=== PATIENT | male | born 1965 | race Caucasian/White ===

== ENCOUNTER 2017-08-25 12:17 | Emergency (ER) | payer MEDICAID ==
[2017-08-25] MEDS ORDERED: cefTRIAXone 2 GM in Sodium Chloride 0.9% 100 ML IV ONE (12:37)
[2017-08-25] MEDS ORDERED: Clindamycin Phosphate 900 MG in Sodium Chloride 0.9% 100 ML IV ONE (12:37)
[2017-08-25] MEDS ORDERED: Linezolid 600 MG in Premix Bag 1 BAG IV ONE (12:38)
[2017-08-25] MEDS ORDERED: Piperacillin/Tazobactam 4.5 GM in Sodium Chloride 0.9% 100 ML IV ONE (12:38)
--- NOTE | 2017-08-25 12:39 | EDM.PDOC ---
ED HPI GENERAL MEDICAL PROBLEM - General Chief Complaint: Genitourinary Problem Stated Complaint: SCROTAL WALL ABCESS/SENT FROM CLINIC Time Seen by Provider: 08/25/17 12:34 Source of Information: Reports: Patient History Limitations: Reports: No Limitations - History of Present Illness INITIAL COMMENTS - FREE TEXT/NARRATIVE: 51-year-old male presents the ED at the request of his primary care physician Dr. Toledo. Patient presents with a left scrotal inflammation posterior lateral aspect since Wednesday, August 21. He was seen in the clinic and was felt to have a cellulitis developing left lateral scrotum and was placed on cephalexin 500 mg 3 times a day. An ultrasound was also performed which did not show an abscess at this time showed only soft tissue swelling of the scrotum itself. Subsequently the wound opened and started to drain and was seen through the clinic yesterday. Decision made to have a CT scan performed which was done this morning. This revealed an abscess has now formed in the left lateral scrotal sac that is extending up into the left inguinal canal. The patient is a type I diabetic that is extremely poorly controlled. Again due to noncompliance. He takes 30-40 units of Novolog insulin with each meal 80 units of Lantus or Levemir aqnd Victoza 1.8 mg once daily and metformin 1 gm twice daily. He was thus sent to the ED for further evaluation and surgical consultation. It is likely due to his poor diabetic state that his stay in hospital could be longer than 96 hours and he may need to be transferred to [place] for care. Patient walks bent over due to severe scoliosis of his thoracic spine. States he is walking slower because of the pain in the left lateral scrotum. He doesn't feel systemically ill with fever and nausea but he states he gets the chills once in a while. When asked what his blood sugars were he states was 384 today. He rarely gets a reading below 200. Onset: Gradual Onset Date: 08/21/17 Duration: Day(s): Location: Reports: Other (Left lateral scalp posterior scrotum.) Quality: Reports: Ache, Burning Severity: Moderate Improves with: Reports: None Worsens with: Reports: None Context: Denies: Activity, Exercise, Lifting, Sick Contact, Trauma, Other Associated Symptoms: Reports: No Other Symptoms Treatments [employer]: Reports: Acetaminophen, Other (see below) (Ward lacks 500 mg 3 times a day.) Left Groin Pain Score (Numeric/FACES): 8 - Related Data Allergies Allergy/AdvReac Type Severity Reaction Status Date / Time aspirin Allergy Other Verified 08/25/17 12:31 Egg Derived Allergy Hives Verified 08/25/17 12:31 gemfibrozil Allergy Cannot Verified 08/25/17 12:31 Remember Home Meds: Home Meds Insulin Aspart [NovoLOG] 1 dose SQ ASDIRECTED PRN 05/20/14 [History] Insulin Glarg,Human.Rec.Analog [Lantus] 80 unit SQ BEDTIME 05/20/14 [History] Metoprolol Succinate [Toprol XL 50mg] 50 mg PO BID 05/20/14 [History] metFORMIN [Glucophage] 1,000 mg PO BIDM 05/20/14 [History] Lisinopril 10 mg PO DAILY 04/25/15 [History] Omeprazole 20 mg PO DAILY 04/25/15 [History] Pravastatin [Pravachol] 40 mg PO DAILY 04/25/15 [History] Cephalexin 500 mg PO TID 08/25/17 [History] Liraglutide [Victoza] 1.8 mg SUBCUT DAILY 08/25/17 [History] Past Medical History Other HEENT History: GLASSES Cardiovascular History: Reports: High Cholesterol, Hypertension Other Respiratory History: Positive sleep study 15 yrs. ago - stopped CPAP 5 yrs. ago Other Musculoskeletal History: HX OF SCOLIOSIS Endocrine/Metabolic History: Reports: Diabetes, Type I Other Endocrine/Metabolic History: uncontrolled DM II BS = 268 states his monitor frequently can not read high sugar Social & Family History - Tobacco Use Smoking Status *Q: Former Smoker Month Tobacco Last Used: 1988 Second Hand Smoke Exposure: Yes - Recreational Drug Use Recreational Drug Use: No Drug Use in Last 12 Months: No - Living Situation & Occupation Living situation: Reports: Single Occupation: Employed ED ROS GENERAL - Review of Systems Review Of Systems: See Below Constitutional: Reports: Chills, Malaise, Fatigue. Denies: Weight Loss HEENT: Reports: No Symptoms Respiratory: Reports: No Symptoms Cardiovascular: Reports: No Symptoms Endocrine: Reports: Fatigue, High Glucose GI/Abdominal: Reports: Other (Mild pain in the left inguinal area and lower abdomen.) : Reports: Other (Left scrotal erythema and pain with purulent drainage from the left lateral scrotum.) Musculoskeletal: Reports: Other (Has severe scoliosis of his thoracic spine) Skin: Reports: Wound (Left lateral scrotum which is oozing purulent material.) Neurological: Reports: No Symptoms Psychiatric: Reports: No Symptoms Hematologic/Lymphatic: Reports: No Symptoms Immunologic: Reports: No Symptoms ED EXAM, RENAL/ - Physical Exam Exam: See Below Exam Limited By: No Limitations General Appearance: Alert, WD/WN, No Apparent Distress (Afebrile) Eye Exam: Bilateral Eye: Normal Inspection Nose: Normal Inspection, Normal Mucosa Throat/Mouth: Normal Inspection, Other (I can smell ketones on his breath.) Head: Atraumatic, Normocephalic Neck: Normal Inspection, Supple, Non-Tender, Full Range of Motion. No: Lymphadenopathy (L), Lymphadenopathy (R) Respiratory/Chest: No Respiratory Distress, Lungs Clear, Normal Breath Sounds, No Accessory Muscle Use, Chest Non-Tender Cardiovascular: Normal Peripheral Pulses, Regular Rate, Rhythm, No Edema, No Gallop, No Murmur, No Rub GI/Abdominal: Normal Bowel Sounds, Soft, Non-Tender, No Organomegaly, No Distention, No Abnormal Bruit, No Mass, Pelvis Stable, Other (Reports previous surgery in his abdomen that the ileo-cecal valve but I'm do not understand exactly what was done. He doesn't think his appendix was removed.) (Male) Exam: Scrotum Tenderness (L), Other (Entire scrotum is erythematous. He has an abscess formation in the left lateral scrotum with 3 areas of purulent pointing evident. One is open and draining and cultures were obtained. Mass extends partially 6 cm laterally towards the inguinal canal in its approximate 1.8 cm in width. It is firm and indurated and in the scrotal wall.) Back Exam: Other (Severe scoliosis thoracic spine.) Extremities: Normal Inspection, Normal Range of Motion, Non-Tender, No Pedal Edema Neurological: Alert, Oriented, CN II-XII Intact, Normal Cognition. No: Normal Gait Psychiatric: Normal Affect, Normal Mood Skin Exam: Warm, Dry, Intact, Normal Color, Other (Draining abscess left lateral scrotal wall with purulent material up against the left medial thigh.) Course - Vital Signs Last Recorded V/S: Last Vital Signs Temp 37.1 C 08/25/17 12:26 Pulse 62 08/25/17 14:22 Resp 16 08/25/17 12:26 BP 129/98 H 08/25/17 14:22 Pulse Ox 95 08/25/17 14:22 - Orders/Labs/Meds Orders: Active Orders 24 hr Category Date Time Status Blood Glucose Check, Bedside [RC] ONETIME Care 08/25/17 12:36 Active EKG Documentation Completion [RC] STAT Care 08/25/17 14:59 Active CULTURE ANAEROBIC + SMEAR [RM] Stat Lab 08/25/17 12:30 Received CULTURE BLOOD [BC] Stat Lab 08/25/17 12:55 Received CULTURE BLOOD [BC] Stat Lab 08/25/17 13:00 Received Insulin Regular, Human [HumuLIN R] 100 unit Med 08/25/17 15:33 Active Sodium Chloride 0.9% [Normal Saline] 99 ml IV ASDIRECTED Potassium Chloride [KCl 10 MEQ in Water 100 ML] 10 meq Med 08/25/17 15:08 Active Premix Bag 1 bag IV ONETIME Sodium Chloride 0.9% [Normal Saline] 1,000 ml Med 08/25/17 12:45 Active IV ASDIRECTED Blood Culture x2 Reflex Set [OM.PC] Stat Oth 08/25/17 12:36 Ordered Medication Orders Sodium Chloride (Normal Saline) 1,000 mls @ 999 mls/hr IV ASDIRECTED [facility] Last Admin: 08/25/17 13:06 Dose: 500 mls/hr Potassium Chloride 10 meq/ (Premix) 100 mls @ 100 mls/hr IV ONETIME ONE Stop: 08/25/17 16:07 Last Admin: 08/25/17 15:24 Dose: 100 mls/hr Insulin Human Regular 100 unit (/ Sodium Chloride) 100 mls @ 5 mls/hr IV ASDIRECTED [facility] PRN Reason: Protocol Last Admin: 08/25/17 15:34 Dose: 5 mls/hr Labs: Laboratory Tests 08/25/17 08/25/17 08/25/17 Range/Units 12:55 12:55 12:55 WBC 7.26 (4.23-9.07) K/mm3 RBC 4.67 (4.63-6.08) M/mm3 Hgb 13.5 L (13.7-17.5) gm/L Hct 38.7 L (40.1-51.0) % MCV 82.9 (79.0-92.2) fl MCH 28.9 (25.7-32.2) pg MCHC 34.9 (32.2-35.5) g/dl RDW Std Deviation 37.4 (35.1-43.9) fL Plt Count 245 (163-337) K/mm3 MPV 11.2 (9.4-12.3) fl Neutrophils % (Manual) 61 H (40-60) % Band Neutrophils % 1 (0-10) % Lymphocytes % (Manual) 27 (20-40) % Atypical Lymphs % 0 % Monocytes % (Manual) 8 (2-10) % Eosinophils % (Manual) 3 (0.8-7.0) % Basophils % (Manual) 0 L (0.2-1.2) Platelet Estimate Adequate Plt Morphology Comment Normal RBC Morph Comment Normal Sodium 135 L (136-145) mEq/L Potassium 3.6 (3.5-5.1) mEq/L Chloride 95 L (98-107) mEq/L Carbon Dioxide 24 (21-32) mEq/L Anion Gap 19.6 H (5-15) BUN 13 (7-18) mg/dL Creatinine 1.1 (0.7-1.3) mg/dL Est Cr Clr Drug Dosing 83.67 mL/min Estimated GFR (MDRD) > 60 (>60) mL/min BUN/Creatinine Ratio 11.8 L (14-18) Glucose 496 H (74-106) mg/dL POC Glucose (70-105) mg/dL Serum Osmolality 307 H (280-300) mosm/kg Lactic Acid 1.4 (0.4-2.0) mmol/L Calcium 9.6 (8.5-10.1) mg/dL Magnesium 1.6 L (1.8-2.4) mg/dl Total Bilirubin 0.5 (0.2-1.0) mg/dL AST 14 L (15-37) U/L ALT 20 (16-63) U/L Alkaline Phosphatase 100 (46-116) U/L C-Reactive Protein 3.6 H* (<1.0) mg/dL Total Protein 7.4 (6.4-8.2) g/dl Albumin 3.6 (3.4-5.0) g/dl Globulin 3.8 gm/dL Albumin/Globulin Ratio 1.0 (1-2) Urine Color (Yellow) Urine Appearance (Clear) Urine pH (5.0-8.0) Ur Specific Panacea (1.005-1.030) Urine Protein (Negative) Urine Glucose (UA) (Negative) Urine Ketones (Negative) Urine Occult Blood (Negative) Urine Nitrite (Negative) Urine Bilirubin (Negative) Urine Urobilinogen (0.2-1.0) Ur Leukocyte Esterase (Negative) Urine RBC (0-5) /hpf Urine WBC (0-5) /hpf Ur Epithelial Cells (0-5) /hpf Urine Bacteria (FEW) /hpf Urine Mucus (FEW) /hpf Ketones (0.0-0.3) mM 08/25/17 08/25/17 08/25/17 Range/Units 12:55 13:32 14:00 WBC (4.23-9.07) K/mm3 RBC (4.63-6.08) M/mm3 Hgb (13.7-17.5) gm/L Hct (40.1-51.0) % MCV (79.0-92.2) fl MCH (25.7-32.2) pg MCHC (32.2-35.5) g/dl RDW Std Deviation (35.1-43.9) fL Plt Count (163-337) K/mm3 MPV (9.4-12.3) fl Neutrophils % (Manual) (40-60) % Band Neutrophils % (0-10) % Lymphocytes % (Manual) (20-40) % Atypical Lymphs % % Monocytes % (Manual) (2-10) % Eosinophils % (Manual) (0.8-7.0) % Basophils % (Manual) (0.2-1.2) Platelet Estimate Plt Morphology Comment RBC Morph Comment Sodium (136-145) mEq/L Potassium (3.5-5.1) mEq/L Chloride (98-107) mEq/L Carbon Dioxide (21-32) mEq/L Anion Gap (5-15) BUN (7-18) mg/dL Creatinine (0.7-1.3) mg/dL Est Cr Clr Drug Dosing mL/min Estimated GFR (MDRD) (>60) mL/min BUN/Creatinine Ratio (14-18) Glucose (74-106) mg/dL POC Glucose 383 H (70-105) mg/dL Serum Osmolality (280-300) mosm/kg Lactic Acid (0.4-2.0) mmol/L Calcium (8.5-10.1) mg/dL Magnesium (1.8-2.4) mg/dl Total Bilirubin (0.2-1.0) mg/dL AST (15-37) U/L ALT (16-63) U/L Alkaline Phosphatase (46-116) U/L C-Reactive Protein (<1.0) mg/dL Total Protein (6.4-8.2) g/dl Albumin (3.4-5.0) g/dl Globulin gm/dL Albumin/Globulin Ratio (1-2) Urine Color Light yellow (Yellow) Urine Appearance Clear (Clear) Urine pH 6.0 (5.0-8.0) Ur Specific Panacea 1.015 (1.005-1.030) Urine Protein Negative (Negative) Urine Glucose (UA) 2+ H (Negative) Urine Ketones 2+ H (Negative) Urine Occult Blood Negative (Negative) Urine Nitrite Negative (Negative) Urine Bilirubin Negative (Negative) Urine Urobilinogen 0.2 (0.2-1.0) Ur Leukocyte Esterase Negative (Negative) Urine RBC Not seen (0-5) /hpf Urine WBC 0-5 (0-5) /hpf Ur Epithelial Cells Not seen (0-5) /hpf Urine Bacteria Rare (FEW) /hpf Urine Mucus Few (FEW) /hpf Ketones 2.7 (0.0-0.3) mM Meds: Medications Generic Name Dose Route Start Last Admin Trade Name Freq PRN Reason Stop Dose Admin Sodium Chloride 1,000 mls @ 999 mls/hr 08/25/17 12:45 08/25/17 13:06 Normal Saline IV 500 mls/hr ASDIRECTED JANET Administration Potassium Chloride 10 meq/ 100 mls @ 100 mls/hr 08/25/17 15:08 08/25/17 15:24 Premix IV 08/25/17 16:07 100 mls/hr ONETIME ONE Administration Insulin Human Regular 100 unit 100 mls @ 5 mls/hr 08/25/17 15:33 08/25/17 15: 34 / Sodium Chloride IV 5 mls/hr ASDIRECTED JANET Administration Protocol Discontinued Medications Generic Name Dose Route Start Last Admin Trade Name Freq PRN Reason Stop Dose Admin Ceftriaxone Sodium 2 gm/ 100 mls @ 200 mls/hr 08/25/17 12:37 08/25/17 13:07 Sodium Chloride IV 08/25/17 13:06 200 mls/hr ONETIME ONE Administration Clindamycin Phosphate 900 mg/ 106 mls @ 100 mls/hr 08/25/17 12:37 08/25/17 13 :40 Sodium Chloride IV 08/25/17 13:40 100 mls/hr ONETIME ONE Administration Linezolid 600 mg/ Premix 300 mls @ 300 mls/hr 08/25/17 12:38 IV 08/25/17 13:37 ONETIME ONE Piperacillin Sod/Tazobactam 100 mls @ 200 mls/hr 08/25/17 12:38 08/25/17 13: 44 Sod 4.5 gm/ Sodium Chloride IV 08/25/17 13:07 Not Given ONETIME ONE Insulin Human Regular 100 unit 100 mls @ 437.5 mls/hr 08/25/17 14:45 / Sodium Chloride IV ASDIRECTED JANET Protocol 5 UNITS/KG/HR Potassium Chloride Confirm 08/25/17 15:14 08/25/17 15:37 Kcl 10 Meq In Water 100 Ml Administered 08/25/17 15:15 Not Given Dose 100 mls @ as directed .ROUTE .STK-MED ONE Insulin Human Regular 10 unit 08/25/17 13:38 08/25/17 13:59 Humulin R IVPUSH 08/25/17 13:39 10 units ONETIME ONE Administration Protocol - Radiology Interpretation Free Text/Narrative:: 51-year-old male presents to the ED at the request of his primary care physician . He sat in infective process left lateral scrotal wall since last August 21. Scrotal ultrasound done on Wednesday it's suggested that the infection was localized to the scrotal wall and he was placed on cephalexin 500 mg 3 times a day. The wound start opening and draining yesterday evening and therefore CT scan was done today which shows an abscess has now formed in the left scrotal wall and it is draining purulent material up against his left medial thigh. The abscess apparently extends up to the left inguinal canal on CT according to Dr. charlton. The patient himself is not showing signs of systemic illness although he complains intermittently of some chills. He is afebrile on examination. There is no evidence of erythema of the abdominal wall but he does have erythema both sides of his scrotum and active draining area on the left lateral posterior scrotal wall with 3 areas of purulent pointing. The problem is that he is a very poorly controlled diabetic. Probably mainly due to noncompliance. He rarely gets his sugar below 200. Today sugar was penetrating foreign I can smell ketones on his breath. He therefore will require hospitalization with open drainage of the abscess before he develops next arising fasciitis or David's gangrene. Will start him on Rocephin 2 g IV and Zyvox 600 mg IV and then this will be followed by clindamycin 900 mg IV. I will discuss this case with local surgeon but I suspect he will be in hospital longer than 96 hours which showed lids are stay in the [facility] hospital. We will likely therefore didn't require transferred to [facility] for definitive surgical management and care which may be prolonged. Blood cultures 2 were obtained. We did obtain cultures from the wound is then not been done previous. - Re-Assessments/Exams Free Text/Narrative Re-Assessment/Exam: 08/25/17 13:40 bedside blood sugar reported to be 383. Will give Humalog insulin by R insulin 10 units IV bolus. 08/25/17 15:00 Labs are back. White count was 7.26 with 61% neutrophils and 1% bands reported. Hemoglobin is 13.5 with hematocrit of 38.7. Sodium was 135 potassium 3.6 chloride 95 bicarbonate 24. And a gap is elevated at 19.6. B1 is 13 creatinine is 1.1. EGFR remains greater than 60.. Glucose is 496 in the lab. Osmolality 307. Lactic acid 1.4. Calcium 9.6 magnesium slightly low at 1.6. Total bilirubin 0.5 AST is 14 and she is 20 alkaline phosphatase stays 100. C- reactive protein is 3.6. Urinalysis is essentially normal without any signs of infection. Plan insulin infusion at 5 units an hour.. I will therefore hang 10 mEq of potassium to run in over one half hour. He will be on an insulin drip at 5 units an hour. He is clindamycin is due to run in [employer] and he has 2 IVs running. Plan will be to give him normal saline at open. 08/25/17 15:20: Spoke with urologist at [facility] and he has advised transfer to his facility. Dr. Evans --hospitalist has accepted care. Patient will therefore be transferred to that hospital per ground ambulance. 2 major problems one is uncontrolled diabetes with mild diabetic ketoacidosis. Second is developing scrotal abscess that is extending up towards the left inguinal canal by CT examination as reported to me from CT done through the [place] system this morning. Patient is not systemically ill at this point time from the infection. His diabetes is poorly controlled chronically. Departure - Departure Time of Disposition: 15:30 Disposition: DC/Tfer to Acute Hospital 02 Condition: Serious Clinical Impression: Scrotal wall abscess, Diabetic ketoacidosis Uncontrolled diabetes mellitus Qualifiers: Diabetes mellitus type: type 2 Diabetes mellitus complication status: with hyperglycemia Diabetes mellitus senior care insulin use: unspecified senior care insulin use status Qualified Code(s): E11.65 - Type 2 diabetes mellitus with hyperglycemia - Discharge Information Referrals: Eris Toledo MD [Primary Care Provider] - Forms: ED Department Discharge Additional Instructions: Patient be transferred to [place] for definitive surgical management by urology services of his left scrotal wall abscess which is extending up into the left inguinal canal on CT exam. Has uncontrolled type 2 diabetes controlled with insulin. He is showing some evidence of early diabetic ketoacidosis with a serum ketones of 2.5 and a and a gap of 19.5. He is therefore started on insulin drip at 5 units an hour. He is to be admitted by hospitalist service and urology services to consult. - My Orders Last 24 Hours: My Active Orders 08/25/17 12:30 CULTURE ANAEROBIC + SMEAR [RM] Stat 08/25/17 12:36 Blood Glucose Check, Bedside [RC] ONETIME Blood Culture x2 Reflex Set [OM.PC] Stat 08/25/17 12:45 Sodium Chloride 0.9% [Normal Saline] 1,000 ml IV ASDIRECTED 08/25/17 12:55 CULTURE BLOOD [BC] Stat 08/25/17 13:00 CULTURE BLOOD [BC] Stat 08/25/17 14:59 EKG Documentation Completion [RC] STAT 08/25/17 15:08 Potassium Chloride [KCl 10 MEQ in Water 100 ML] 10 meq Premix Bag 1 bag IV ONETIME 08/25/17 15:33 Insulin Regular, Human [HumuLIN R] 100 unit Sodium Chloride 0.9% [Normal Saline] 99 ml IV ASDIRECTED - Assessment/Plan Last 24 Hours: My Active Orders 08/25/17 12:30 CULTURE ANAEROBIC + SMEAR [RM] Stat 08/25/17 12:36 Blood Glucose Check, Bedside [RC] ONETIME Blood Culture x2 Reflex Set [OM.PC] Stat 08/25/17 12:45 Sodium Chloride 0.9% [Normal Saline] 1,000 ml IV ASDIRECTED 08/25/17 12:55 CULTURE BLOOD [BC] Stat 08/25/17 13:00 CULTURE BLOOD [BC] Stat 08/25/17 14:59 EKG Documentation Completion [RC] STAT 08/25/17 15:08 Potassium Chloride [KCl 10 MEQ in Water 100 ML] 10 meq Premix Bag 1 bag IV ONETIME 08/25/17 15:33 Insulin Regular, Human [HumuLIN R] 100 unit Sodium Chloride 0.9% [Normal Saline] 99 ml IV ASDIRECTED
[2017-08-25] MEDS ORDERED: Sodium Chloride 0.9% 1,000 ML IV SCH ×2 (12:45→15:10)
[2017-08-25] MEDS ORDERED: Insulin Regular, Human 100 Units/ML 3 ML Vial IVPUSH ONE (13:38)
[2017-08-25 14:23] VITALS: BP 129/98
[2017-08-25] MEDS ORDERED: Potassium Chloride 10 MEQ in Premix Bag 1 BAG IV ONE (15:08)
[2017-08-25] MEDS ORDERED: Potassium Chloride 100 ML ONE (15:14)
== END 2017-08-25 15:57 ==
LOC: JD.ED 12:17
DX: N49.2 Inflammatory disorders of scrotum (principal); E11.10 Type 2 diabetes mellitus with ketoacidosis without coma; I10 Essential (primary) hypertension; E78.00 Pure hypercholesterolemia, unspecified; Z87.891 Personal history of nicotine dependence; Z79.4 Long term (current) use of insulin; Z79.899 Other long term (current) drug therapy; Z88.6 Allergy status to analgesic agent; Z88.8 Allergy status to other drugs, medicaments and biological substances; Z91.012 Allergy to eggs
CPT/HCPCS: 36415; 80053; 81001; 82009; 82962; 83605; 83735; 83930; 85025; 86140; 87040; 87075; 87205; 93005; 96361; 96365; 96367; 96375; 99285; J0696; J1817; J2020; J3480; J7030; J7040; 87076; 87077; 87181; 87186

== ENCOUNTER 2019-12-27 23:08 | Emergency (ER) | payer MEDICAID, OTHER ==
--- NOTE | 2019-12-27 23:34 | EDM.PDOC ---
ED HPI GENERAL MEDICAL PROBLEM - General Chief Complaint: Respiratory Problem Stated Complaint: COUGH/CHEST PAIN Time Seen by Provider: 12/27/19 23:20 Source of Information: Reports: Patient History Limitations: Reports: No Limitations - History of Present Illness INITIAL COMMENTS - FREE TEXT/NARRATIVE: 54-year-old male presents to the ED due to severe paroxysmal cough and bringing up some sputum for the last 2 to 3 days. He states he is had a cough off and on for the last 2 months. Not sure about fever or chills. States he does have some mild generalized myalgia. Appetite remains good. She cannot sleep tonight because of severe paroxysmal cough. Still smokes cigarettes but quit many years ago. No history of asthma. Admits greenish in color without any hemoptysis. Of note the patient is a type II diabetic controlled with insulin and oral hypoglycemics Onset: Gradual Onset Date: 12/24/19 Duration: Day(s):, Getting Worse Location: Reports: Chest Quality: Reports: Ache (Of cough with pain upper anterior chest from coughing so much.) Severity: Moderate Improves with: Reports: None Worsens with: Reports: Other Context: Denies: Activity, Exercise, Lifting, Sick Contact, Trauma, Other Associated Symptoms: Reports: Chest Pain, Cough, cough w sputum, Malaise. Denies: No Other Symptoms, Confusion, Diaphoresis, Fever/Chills (Only with coughing), Headaches, Loss of Appetite, Nausea/Vomiting Treatments [employer]: Reports: Other (see below) (None.) Chest Pain Score (Numeric/FACES): 4 - Related Data Allergies Allergy/AdvReac Type Severity Reaction Status Date / Time aspirin Allergy Other Verified 12/27/19 23:18 Egg Derived Allergy Hives Verified 12/27/19 23:18 gemfibrozil Allergy Cannot Verified 12/27/19 23:18 Remember Home Meds: Home Meds Insulin Aspart [NovoLOG] 1 dose SQ ASDIRECTED PRN 05/20/14 [History] Insulin Glarg,Human.Rec.Analog [Lantus] 80 unit SQ BEDTIME 05/20/14 [History] Metoprolol Succinate [Toprol XL 50mg] 50 mg PO BID 05/20/14 [History] metFORMIN [Glucophage] 1,000 mg PO BIDM 05/20/14 [History] Lisinopril 10 mg PO DAILY 04/25/15 [History] Omeprazole 20 mg PO DAILY 04/25/15 [History] Rosuvastatin Calcium 40 mg PO DAILY 12/27/19 [History] Codeine/Promethazine [Phenergan with Codeine] 15 ml PO Q6H PRN #300 ml 12/28/19 [Rx] Doxycycline [Vibramycin] 100 mg PO BID #20 cap 12/28/19 [Rx] Past Medical History Other HEENT History: GLASSES Cardiovascular History: Reports: High Cholesterol, Hypertension Other Respiratory History: Positive sleep study 15 yrs. ago - stopped CPAP 5 yrs. ago Other Musculoskeletal History: HX OF SCOLIOSIS Endocrine/Metabolic History: Reports: Diabetes, Type I Other Endocrine/Metabolic History: uncontrolled DM II BS = 268 states his monitor frequently can not read high sugar - Infectious Disease History Infectious Disease History: Reports: Chicken Pox Social & Family History - Tobacco Use Smoking Status *Q: Unknown Ever Smoked - Caffeine Use Caffeine Use: Reports: Soda - Living Situation & Occupation Living situation: Reports: Single Occupation: Employed ED ROS GENERAL - Review of Systems Review Of Systems: See Below Constitutional: Reports: Malaise, Fatigue (Not sleeping). Denies: Fever, Chills HEENT: Reports: Glasses (Glasses for reading) Respiratory: Reports: Shortness of Breath, Cough, Sputum. Denies: Wheezing, Hemoptysis (Greenish-brown sputum) Cardiovascular: Reports: Chest Pain (Upper chest from coughing so much.), Blood Pressure Problem (Metoprolol), Dyspnea on Exertion. Denies: Claudication, Edema , Lightheadedness, Orthopnea Endocrine: Reports: No Symptoms (Times) GI/Abdominal: Reports: No Symptoms : Reports: Frequency Musculoskeletal: Reports: Neck Pain, Back Pain Skin: Reports: No Symptoms (Times) Neurological: Reports: No Symptoms Psychiatric: Reports: No Symptoms ED EXAM, GENERAL - Physical Exam Exam: See Below Exam Limited By: No Limitations General Appearance: Alert, WD/WN, Mild Distress, Other (He feels slightly warm to palpation but nurses recorded temperature is 36.0. Heart rate was 117 when he came in and is currently about the same. Appears to be sinus tachycardia on the monitor he was 127/91.) Eye Exam: Bilateral Eye: Normal Inspection (No scleral icterus or blepharal pallor.) Ears: Normal TMs Throat/Mouth: Normal Inspection, Normal Lips, Normal Oropharynx, Other ( Dentition in poor shape.) Head: Atraumatic, Normocephalic Neck: Normal Inspection, Supple, Non-Tender, Full Range of Motion. No: Carotid Bruit, Lymphadenopathy (L), Lymphadenopathy (R) Respiratory/Chest: No Respiratory Distress, Lungs Clear, Normal Breath Sounds, No Accessory Muscle Use Cardiovascular: No Edema, No Gallop ( I will get an ECG to confirm this), No JVD, No Murmur, No Rub, Tachycardia (Rate is 117 120/min and appears to be sinus tach on the monitor.). No: Normal Peripheral Pulses, Regular Rate, Rhythm Peripheral Pulses: 2+: Posterior Tibial (L), Posterior Tibial (R), Dorsalis Pedis (L), Dorsalis Pedis (R) GI/Abdominal: Normal Bowel Sounds, Soft, Non-Tender, No Organomegaly, No Abnormal Bruit, No Mass, Pelvis Stable, Other (K. Colin abdomen.) Back Exam: Normal Inspection, Full Range of Motion. No: CVA Tenderness (L), CVA Tenderness (R) Extremities: Normal Inspection, Normal Range of Motion, Non-Tender, No Pedal Edema Neurological: Alert, Oriented, CN II-XII Intact, Normal Cognition Psychiatric: Normal Affect, Normal Mood Skin Exam: Warm, Dry, Intact, Normal Color, No Rash EKG INTERPRETATION EKG Date: 12/27/19 Time: 23:49 Rhythm: Other Rate (Beats/Min): 112 Wirt: Normal P-Wave: Present (Inverted in V1 nonspecific finding) QRS: Other (Late R wave transition consider right ventricular hypertrophy/ septal hypertrophy pattern.) ST-T: Other (Nonspecific T wave flattening in lead I and lead III.) QT: Prolonged (Clarisse prolonged) EKG Interpretation Comments: Borderline ECG. No signs of ischemia Course - Vital Signs Last Recorded V/S: Last Vital Signs Temp 36.0 C L 12/27/19 23:15 Pulse 113 H 12/28/19 00:35 Resp 20 12/28/19 00:35 BP 125/80 12/28/19 00:35 Pulse Ox 94 L 12/28/19 00:35 - Orders/Labs/Meds Orders: Active Orders 24 hr Category Date Time Status EKG Documentation Completion [RC] STAT Care 12/27/19 23:49 Active Chest 1V Frontal [CR] Stat Exams 12/27/19 23:27 Taken Meds: Medications Discontinued Medications Generic Name Dose Route Start Last Admin Trade Name Freq PRN Reason Stop Dose Admin Doxycycline Hyclate 100 mg 12/28/19 00:11 12/28/19 00:25 Vibramycin PO 12/28/19 00:12 100 mg ONETIME ONE Administration Promethazine HCl/Codeine 15 ml 12/28/19 00:11 12/28/19 00:26 Phenergan With Codeine PO 12/28/19 00:12 15 ml ONETIME ONE Administration - Radiology Interpretation Free Text/Narrative:: 54-year-old male who is an insulin-dependent type 2 diabetic presents to the ED complaining of paroxysmal cough productive of some greenish sputum. Clinically has a very low-grade fever but nurses recorded temperature is 36.0. He presents with a sinus tachycardia of 112 to 117/min. It appears sinus on the monitor. ECG will be done. 1 view chest x-ray will be done as well since he has been coughing productively for about 3 to 4 days. He does not show signs or symptoms of influenza with generalized myalgia or headache or decreased appetite. - Re-Assessments/Exams Free Text/Narrative Re-Assessment/Exam: 12/27/19 23:57 audible chest x-ray is within normal limits showing no signs of pneumonia or significant vascular congestion. Cardiac silhouette is normal in size gnosis is bronchitis. Patient will be placed on doxycycline 100 mg twice daily for the next 10 days to clear up infection. Will be given initial dose of cough syrup Phenergan with codeine 15 mils by mouth at night to help with paroxysmal cough. Departure - Departure Time of Disposition: 00:12 Disposition: Home, Self-Care 01 Condition: Fair Clinical Impression: Bronchitis - Discharge Information *PRESCRIPTION DRUG MONITORING PROGRAM REVIEWED*: Not Applicable *COPY OF PRESCRIPTION DRUG MONITORING REPORT IN PATIENT [place]: Not Applicable Prescriptions: Codeine/Promethazine [Phenergan with Codeine] 15 ml PO Q6H PRN #300 ml PRN Reason: Cough relief Doxycycline [Vibramycin] 100 mg PO BID #20 cap Instructions: Upper Respiratory Infection, Adult, [id number] Referrals: Eris Toledo MD [Primary Care Provider] - Forms: ED Department Discharge Additional Instructions: Evaluation in the emergency room tonight in regards to upper respiratory tract infection with harsh paroxysmal productive cough for the last 3 days. Associated low-grade fever on examination. Chest x-ray done does not reveal any pneumonia. Diagnosis is bronchitis. Treatment is plenty of fluids. Motrin 600 mg every 6 hours if needed for fever relief. Antibiotic is to be doxycycline 100 mg twice daily with food for the next 10 days to clear up chest infection. First dose was provided in the ED tonight. Cough syrup is to be Phenergan with codeine 15 mils every 6 hours as needed for cough relief. This should be taken with a little food in your stomach it can make not nausea occur on an empty stomach. Follow up with personal doctor if not markedly improved in 3 to 4 days time. Sepsis Event Note - Evaluation Sepsis Screening Result: No Definite Risk - Focused Exam Vital Signs: Vital Signs Temp Pulse Resp BP Pulse Ox 12/28/19 00:35 113 H 20 125/80 94 L 12/27/19 23:15 36.0 C L 117 H 18 140/97 H 98 Date Exam was Performed: 12/28/19 Time Exam was Performed: 03:21 - My Orders Last 24 Hours: My Active Orders 12/27/19 23:27 Chest 1V Frontal [CR] Stat 12/27/19 23:49 EKG Documentation Completion [RC] STAT - Assessment/Plan Last 24 Hours: My Active Orders 12/27/19 23:27 Chest 1V Frontal [CR] Stat 12/27/19 23:49 EKG Documentation Completion [RC] STAT
[2019-12-28] MEDS ORDERED: Doxycycline 100 MG Cap PO ONE (00:11)
[2019-12-28] MEDS ORDERED: Codeine/Promethazine 10-6.25 MG/5 ML Syrup 5 ML UD Cup PO ONE (00:11)
[2019-12-28 00:38] VITALS: BP 125/80; PULSE 113
--- NOTE | 2019-12-28 07:05 | CR ---
Chest: Portable view of the chest was obtained. Comparison: Prior chest x-ray of 04/08/11. Heart size is normal. Tortuous thoracic aorta is seen. Lungs are clear with no acute parenchymal change. Bony structures are grossly intact. Impression: 1. Nothing acute is appreciated on portable chest x-ray. Diagnostic code #1 This report was dictated in [place] Standard Time
== END 2019-12-28 00:31 | disposition home or self-care (01) ==
LOC: JD.ED 23:08
DX: J40 Bronchitis, not specified as acute or chronic (principal); I10 Essential (primary) hypertension; E10.9 Type 1 diabetes mellitus without complications; Z91.012 Allergy to eggs; Z88.8 Allergy status to other drugs, medicaments and biological substances; Z79.4 Long term (current) use of insulin; Z79.899 Other long term (current) drug therapy
CPT/HCPCS: 71045; 93005; 99285; A9270; 93010; 99283

== ENCOUNTER 2020-11-12 15:23 | Emergency (ER) | payer MEDICAID, SELFPAY ==
[2020-11-12] MEDS ORDERED: Sodium Chloride 0.9% 10 ML Syringe FLUSH PRN (15:58)
--- NOTE | 2020-11-12 16:35 | EDM.PDOC ---
ED HPI GENERAL MEDICAL PROBLEM - General Chief Complaint: Chest Pain Stated Complaint: CHEST PAIN/HIGH BP Time Seen by Provider: 11/12/20 15:35 Source of Information: Reports: Patient, RN Notes Reviewed History Limitations: Reports: No Limitations - History of Present Illness INITIAL COMMENTS - FREE TEXT/NARRATIVE: Patient is a 54-year-old male presenting to the emergency department with complaints of onset of chest pain around 1130 this morning. Patient states that he was driving home when he experienced pain in his bilateral upper chest radiating down to his diaphragm. Since that time, the pain has moved intermittently from the right to left side. It has mostly resolved, however he feels a bit of a dull ache in his lower sternum this time. He denies any shortness of breath, nausea, vomiting, diaphoresis. States he called and spoke with his doctors nurse and they recommended he come to the ER for evaluation. Patient does have a history of high blood pressure as well as CA, however after further discussion patient states that his heart stopped during a surgery, however he has never had a known blockage. He has not had stents or bypass. Patient is type I diabetic. States he took a sliding scale NovoLog with breakfast this morning, however he ate lunch but did not take his insulin due to the onset of chest pain. Blood sugar on triage was 390. Patient is prescribed take 50 mg of metoprolol XL twice daily, however he states that he has been taking 100 mg daily in the evening as he gets a bad taste in his mouth when he takes the medication. On triage, patient was found to have a elevated blood pressure at 157/106, he is tachycardic at 122. Respiratory rate 16, temperature 98.7, oxygen 96% on room air. Patient is allergic to aspirin. States that his airway closes when he takes this medication. Chest Pain Score (Numeric/FACES): 8 - Related Data Allergies Allergy/AdvReac Type Severity Reaction Status Date / Time aspirin Allergy Other Verified 12/27/19 23:18 Egg Derived Allergy Hives Verified 12/27/19 23:18 gemfibrozil Allergy Cannot Verified 12/27/19 23:18 Remember latex Allergy Cannot Verified 11/12/20 16:41 Remember Home Meds: Home Meds Insulin Aspart [NovoLOG] 1 dose SQ ASDIRECTED PRN 05/20/14 [History] Insulin Glarg,Human.Rec.Analog [Lantus] 80 unit SQ BEDTIME 05/20/14 [History] Metoprolol Succinate [Toprol XL 50mg] 50 mg PO BID 05/20/14 [History] metFORMIN [Glucophage] 1,000 mg PO BIDM 05/20/14 [History] Lisinopril 10 mg PO DAILY 04/25/15 [History] Omeprazole 20 mg PO DAILY 04/25/15 [History] Rosuvastatin Calcium 40 mg PO DAILY 12/27/19 [History] Codeine/Promethazine [Phenergan with Codeine] 15 ml PO Q6H PRN #300 ml 12/28/19 [Rx] Doxycycline [Vibramycin] 100 mg PO BID #20 cap 12/28/19 [Rx] Past Medical History HEENT History: Reports: Impaired Vision Other HEENT History: GLASSES Cardiovascular History: Reports: High Cholesterol, Hypertension, CA Respiratory History: Reports: Sleep Apnea Other Respiratory History: Positive sleep study 15 yrs. ago - stopped CPAP 5 yrs. ago Other Musculoskeletal History: HX OF SCOLIOSIS Neurological History: Reports: CVA Endocrine/Metabolic History: Reports: Diabetes, Type I Other Endocrine/Metabolic History: uncontrolled DM II BS = 268 states his monitor frequently can not read high sugar Hematologic History: Reports: Blood Transfusion(s) - Infectious Disease History Infectious Disease History: Reports: Chicken Pox - Past Surgical History GI Surgical History: Reports: Appendectomy Social & Family History - Tobacco Use Tobacco Use Status *Q: Never Tobacco User Second Hand Smoke Exposure: No - Caffeine Use Caffeine Use: Reports: Soda - Recreational Drug Use Recreational Drug Use: No - Living Situation & Occupation Living situation: Reports: Single Occupation: Employed ED ROS GENERAL - Review of Systems Review Of Systems: See Below Constitutional: Reports: No Symptoms. Denies: Fever, Chills, Weakness HEENT: Reports: No Symptoms Respiratory: Reports: No Symptoms. Denies: Shortness of Breath, Cough Cardiovascular: Reports: Chest Pain. Denies: Dyspnea on Exertion, Lightheadedness, Palpitations, Syncope Endocrine: Reports: No Symptoms GI/Abdominal: Reports: No Symptoms. Denies: Nausea, Vomiting : Reports: No Symptoms Musculoskeletal: Reports: No Symptoms Skin: Reports: No Symptoms Neurological: Denies: Confusion, Dizziness, Headache Psychiatric: Reports: No Symptoms Hematologic/Lymphatic: Reports: No Symptoms Immunologic: Reports: No Symptoms ED EXAM, GENERAL - Physical Exam Exam: See Below General Appearance: Alert, WD/WN, No Apparent Distress Respiratory/Chest: No Respiratory Distress, Lungs Clear, Normal Breath Sounds, No Accessory Muscle Use, Other (tenderness to palpation over the lower sternum) Cardiovascular: Normal Peripheral Pulses, Regular Rate, Rhythm, No Edema, No Gallop, No JVD, No Murmur, No Rub GI/Abdominal: Normal Bowel Sounds, Soft, Non-Tender, No Organomegaly, No Di stention, No Abnormal Bruit, No Mass Neurological: Alert, Oriented, CN II-XII Intact, Normal Cognition, Normal Gait, Normal Reflexes, No Motor/Sensory Deficits Psychiatric: Normal Affect, Normal Mood Skin Exam: Warm, Dry, Intact, Normal Color, No Rash #1 Interpretation EKG Date: 11/12/20 Time: 15:35 Rhythm: NSR Rate (Beats/Min): 118 [place]: Normal P-Wave: Present QRS: Normal ST-T: Normal QT: Normal Course - Vital Signs Last Recorded V/S: Last Vital Signs Temp 98.3 F 11/12/20 18:50 Pulse 112 H 11/12/20 18:50 Resp 18 11/12/20 18:50 BP 154/102 H 11/12/20 18:50 Pulse Ox 97 11/12/20 18:50 - Orders/Labs/Meds Orders: Active Orders 24 hr Category Date Time Status Peripheral IV Insertion Adult [OM.PC] Stat Oth 11/12/20 15:58 Ordered Labs: Laboratory Tests 11/12/20 11/12/20 11/12/20 Range/Units 15:45 15:45 15:45 WBC 9.67 H (4.23-9.07) K/mm3 RBC 5.34 (4.63-6.08) M/mm3 Hgb 15.2 D (13.7-17.5) gm/dl Hct 44.5 (40.1-51.0) % MCV 83.3 (79.0-92.2) fl MCH 28.5 (25.7-32.2) pg MCHC 34.2 (32.2-35.5) g/dl RDW Std Deviation 38.8 (35.1-43.9) fL Plt Count 242 (163-337) K/mm3 MPV 11.3 (9.4-12.3) fl Neut % (Auto) 66.5 (34.0-67.9) % Lymph % (Auto) 24.0 (21.8-53.1) % [place] % (Auto) 6.3 (5.3-12.2) % Eos % (Auto) 2.8 (0.8-7.0) Baso % (Auto) 0.3 (0.1-1.2) % Neut # (Auto) 6.43 H (1.78-5.38) K/mm3 Lymph # (Auto) 2.32 (1.32-3.57) K/mm3 [place] # (Auto) 0.61 (0.30-0.82) K/mm3 Eos # (Auto) 0.27 (0.04-0.54) K/mm3 Baso # (Auto) 0.03 (0.01-0.08) K/mm3 D-Dimer, Quantitative (0.19-0.50) mg/L Sodium 139 (136-145) mEq/L Potassium 3.7 (3.5-5.1) mEq/L Chloride 100 (98-107) mEq/L Carbon Dioxide 27 (21-32) mEq/L Anion Gap 15.7 H (5-15) BUN 11 (7-18) mg/dL Creatinine 1.1 (0.7-1.3) mg/dL Est Cr Clr Drug Dosing 80.81 mL/min Estimated GFR (MDRD) > 60 (>60) mL/min BUN/Creatinine Ratio 10.0 L (14-18) Glucose 418 H (74-106) mg/dL POC Glucose 390 H (70-105) mg/dL Calcium 9.9 (8.5-10.1) mg/dL Total Bilirubin 0.5 (0.2-1.0) mg/dL AST 10 L (15-37) U/L ALT 20 (16-63) U/L Alkaline Phosphatase 92 (46-116) U/L Troponin I < 0.017 (0.00-0.056) ng/mL C-Reactive Protein <0.2 (<1.0) mg/dL Total Protein 7.5 (6.4-8.2) g/dl Albumin 4.0 (3.4-5.0) g/dl Globulin 3.5 gm/dL Albumin/Globulin Ratio 1.1 (1-2) 11/12/20 11/12/20 Range/Units 15:45 18:41 WBC (4.23-9.07) K/mm3 RBC (4.63-6.08) M/mm3 Hgb (13.7-17.5) gm/dl Hct (40.1-51.0) % MCV (79.0-92.2) fl MCH (25.7-32.2) pg MCHC (32.2-35.5) g/dl RDW Std Deviation (35.1-43.9) fL Plt Count (163-337) K/mm3 MPV (9.4-12.3) fl Neut % (Auto) (34.0-67.9) % Lymph % (Auto) (21.8-53.1) % [place] % (Auto) (5.3-12.2) % Eos % (Auto) (0.8-7.0) Baso % (Auto) (0.1-1.2) % Neut # (Auto) (1.78-5.38) K/mm3 Lymph # (Auto) (1.32-3.57) K/mm3 [place] # (Auto) (0.30-0.82) K/mm3 Eos # (Auto) (0.04-0.54) K/mm3 Baso # (Auto) (0.01-0.08) K/mm3 D-Dimer, Quantitative 0.78 H (0.19-0.50) mg/L Sodium (136-145) mEq/L Potassium (3.5-5.1) mEq/L Chloride (98-107) mEq/L Carbon Dioxide (21-32) mEq/L Anion Gap (5-15) BUN (7-18) mg/dL Creatinine (0.7-1.3) mg/dL Est Cr Clr Drug Dosing mL/min Estimated GFR (MDRD) (>60) mL/min BUN/Creatinine Ratio (14-18) Glucose (74-106) mg/dL POC Glucose 247 H (70-105) mg/dL Calcium (8.5-10.1) mg/dL Total Bilirubin (0.2-1.0) mg/dL AST (15-37) U/L ALT (16-63) U/L Alkaline Phosphatase (46-116) U/L Troponin I (0.00-0.056) ng/mL C-Reactive Protein (<1.0) mg/dL Total Protein (6.4-8.2) g/dl Albumin (3.4-5.0) g/dl Globulin gm/dL Albumin/Globulin Ratio (1-2) Meds: Medications Discontinued Medications Generic Name Dose Route Start Last Admin Trade Name Freq PRN Reason Stop Dose Admin Sodium Chloride 100 mls @ 60 mls/sec 11/12/20 17:30 11/12/20 17:49 Normal Saline IV 60 mls/sec ASDIRECTED JANET Administration Insulin Human Lispro 12 unit 11/12/20 16:55 11/12/20 17:23 Humalog SUBCUT 11/12/20 16:56 12 units ONETIME ONE Administration Iopamidol 100 ml 11/12/20 17:24 11/12/20 17:48 Isovue-370 (76%) IVPUSH 11/12/20 17:25 100 ml ONETIME ONE Administration Metoprolol Succinate 25 mg 11/12/20 16:58 11/12/20 17:22 Toprol Xl PO 11/12/20 16:59 25 mg ONETIME ONE Administration Sodium Chloride 10 ml 11/12/20 15:58 11/12/20 15:45 Saline Flush FLUSH 10 ml ASDIRECTED PRN Administration Keep Vein Open Sodium Chloride 10 ml 11/12/20 17:30 11/12/20 17:49 Saline Flush FLUSH 10 ml BOLUS JANET Administration - Re-Assessments/Exams Free Text/Narrative Re-Assessment/Exam: Patient is a 54-year-old male presenting to the emergency department with complaints of intermittent, widespread chest discomfort which began around 1130 this morning. Pain originally began in the bilateral upper chest radiating down to his diaphragm. At this point it is mostly resolved, however he does feel a slight dull ache in his lower sternum. On exam, patient does have tenderness to palpation of the chest wall in the area of discomfort. He is mildly tachycardic at 110-120. Blood pressure Elevated at 157/106. Onset of patient's symptoms was approximately 5.5 hours ago, therefore if this is cardiac in nature, we would expect to see an elevation in his troponin. I have ordered CBC, CMP, CRP, D-dimer, troponin, EKG, two-view chest x-ray. Patient is allergic to aspirin, therefore we will not give that at this time. 11/12/20 1710 Hematology was significant for a WBC minimally elevated at 9.67, D-dimer 0.78, anion gap 15.7, glucose of 418. Troponin was undetectable. I have ordered 12 units of subcutaneous Humalog. Patient continues to be mildly tachycardic at 100-110 with a blood pressure in the 150s systolically. I have ordered metoprolol 25 mg p.o. Given the patient's intermittent chest pain, tachycardia, and slightly elevated D-dimer, I have ordered a CT angiogram of the chest to rule out PE. 11/12/20 18:27 CT angiogram of the chest impression as follows 1. Pulmonary arteries are not optimally opacified. Nothing seems to indicate pulmonary embolism within the main or segmental branches but more distal pulmonary emboli could be missed. 2. Mild irregularities within the coronary arteries. 3. 6 mm nodule within the right lung base. Recommend repeat noncontrast chest CT study in 9 months to further evaluate. Heart rate continues to be minimally elevated in the 105-115. Blood pressure 145/104. On review of patient's stress test that was completed in March 2020, patient does have a resting tachycardia. That one at that point it was 115. This leads me to believe he has chronic tachycardia. Recommend that the patient take his metoprolol 50 mg twice daily instead of a single 100 mg dose at night as this will provide a longer period of coverage. Recommend that he take his blood pressures a couple times daily and keep a log of his blood pressure and heart rate. He should follow-up with his primary care provider, Angela Brady, at her next available visit as he will likely require an adjustment in his metoprolol dose. Discussed that his chest pain is likely musculoskeletal in nature which is supported by his chest wall tenderness on exam. Recommend ibuprofen and Tylenol as needed for discomfort. Discussed that he should have a repeat CT done in 9 months to reevaluate the nodule in his right lung. Discussed return precautions. Discharge instructions as documented. Departure - Departure Time of Disposition: 18:30 Disposition: Home, Self-Care 01 Condition: Good Clinical Impression: Atypical chest pain, Tachycardia with heart rate 100-120 beats per minute Instructions: Nonspecific Chest Pain, Adult, Sinus Tachycardia Referrals: Angela Brady NP [Primary Care Provider] - Forms: ED Department Discharge Additional Instructions: You were seen in the emergency department for intermittent, traveling chest pain which began around 1130 today. Work-up included blood work, chest x-ray, EKG, and a CT angiogram of your chest. Results of your work-up were found to normal with regards to the chest pain. The CT scan of your chest did show a 6 mm nodule in your right lung base and is recommending a repeat CT done in 9 months to evaluate for any changes. Your heart rate was minimally elevated throughout your stay in the ER. I would recommend that you take your metoprolol 50 mg twice daily as opposed to taking it in 1 single dose in the evening. This will provide a longer range of coverage for your blood pressure and heart rate. Recommend that you continue to use your insulin as prescribed. You did receive 12 units of Humalog in the emergency department today. Follow-up with your primary care provider later this week. Recommend checking her blood pressure a couple times daily and keep a log of that and your heart rate to take to your appointment with you. Return to ER for any new or worsening symptoms of concern. Sepsis Event Note (ED) - Evaluation Sepsis Screening Result: No Definite Risk - Focused Exam Vital Signs: Vital Signs Temp Pulse Pulse Resp BP BP Pulse Ox 11/12/20 18:50 98.3 F 112 H 18 154/102 H 97 11/12/20 17:22 100 146/99 H 11/12/20 15:35 98.7 F 122 H 16 157/106 H 96 - My Orders Last 24 Hours: My Active Orders 11/12/20 15:58 Peripheral IV Insertion Adult [OM.PC] Stat - Assessment/Plan Last 24 Hours: My Active Orders 11/12/20 15:58 Peripheral IV Insertion Adult [OM.PC] Stat
--- NOTE | 2020-11-12 16:56 | CR ---
Chest: 2 views of the chest were obtained. Comparison: Prior chest x-ray of 12/27/19. Heart size is normal. Slight tortuosity of the thoracic aorta is seen. Lung are clear. Bony structures are within normal limits for the patient's age. Impression: 1. Nothing acute is seen on 2 view chest x-ray. Diagnostic code #1
[2020-11-12] MEDS ORDERED: Metoprolol Succinate 25 MG Tab.ER PO ONE (16:58)
[2020-11-12] MEDS ORDERED: Iopamidol 755 Mg/ML 100 ML Bottle IVPUSH ONE (17:24)
[2020-11-12] MEDS ORDERED: Sodium Chloride 0.9% 100 ML IV SCH (17:30)
[2020-11-12] MEDS ORDERED: Sodium Chloride 0.9% 10 ML Syringe FLUSH SCH (17:30)
--- NOTE | 2020-11-12 18:12 | CT ---
CT chest Technique: Multiple axial sections through the chest were obtained. Intravenous contrast was utilized. Study has been performed as a pulmonary angiogram protocol. Comparison: Prior chest x-ray performed earlier on the same day, no prior chest CT is available. Findings: Pulmonary arteries are not optimally opacified. No filling defects within the main or segmental branches are seen. Smaller more distal pulmonary emboli could easily be missed. Thoracic aorta shows no abnormality. There is irregularity being seen within the coronary arteries. No pericardial thickening is seen. Small portion of the visualized upper abdominal structures show a rim-calcified cyst off the left kidney measuring approximately 5.7 cm which is off the left kidney. 6 mm nodule is noted within the right lung base. Lungs otherwise are clear. Bone window settings were reviewed which show a mild scattered degenerative change within the thoracic spine. No acute bony abnormality is appreciated Impression: 1. Pulmonary arteries are not optimally opacified. Nothing seemed to indicate pulmonary embolism within the main or segmental branches but more distal pulmonary emboli could be missed. 2. Mild irregularity within the coronary arteries. 3. 6 mm nodule within the right lung base. Recommend repeat noncontrast chest CT study in 9 months to further evaluate. 4. Rim-calcified cysts of the left kidney. Diagnostic code #9
[2020-11-12 18:57] VITALS: BP 154/102; PULSE 112
== END 2020-11-12 18:57 | disposition home or self-care (01) ==
LOC: JD.ED 15:23
DX: R07.89 Other chest pain (principal); R00.0 Tachycardia, unspecified; E78.00 Pure hypercholesterolemia, unspecified; I10 Essential (primary) hypertension; M41.9 Scoliosis, unspecified; I25.2 Old myocardial infarction; E10.9 Type 1 diabetes mellitus without complications; Z88.6 Allergy status to analgesic agent; Z91.012 Allergy to eggs; Z91.040 Latex allergy status; Z88.8 Allergy status to other drugs, medicaments and biological substances; Z79.899 Other long term (current) drug therapy; Z86.73 Personal history of transient ischemic attack (TIA), and cerebral infarction without residual deficits
CPT/HCPCS: 36415; 71046; 71046-26; 71275; 71275-26; 80053; 82962; 84484; 85025; 85379; 86140; 93005; 93010; 99284; 99285-25; A9270-GY; J1815-GY; Q9967

== ENCOUNTER 2021-03-04 11:27 | Emergency (ER) | payer OTHER, MEDICAID ==
[2021-03-04] MEDS ORDERED: Sodium Chloride 0.9% 10 ML Syringe FLUSH PRN (12:15)
[2021-03-04] MEDS ORDERED: Sodium Chloride 0.9% 1,000 ML IV ONE (12:17)
--- NOTE | 2021-03-04 12:43 | EDM.PDOC ---
<dEdie Phelps - Last Filed: 03/04/21 14:59> ED HPI GENERAL MEDICAL PROBLEM - General Chief Complaint: Diabetic Complaint Stated Complaint: HIGH BLOOD SUGAR Time Seen by Provider: 03/04/21 11:57 Source of Information: Reports: Patient History Limitations: Reports: No Limitations, Other (ED vital signs reveal a temp of 98.4, pulse 111, respiratory rate 15, blood pressure 153/99, pulse ox 10 0% on room air.) - History of Present Illness INITIAL COMMENTS - FREE TEXT/NARRATIVE: 55-year-old male presents to the emergency department with complaints of high blood sugars. Patient does have a history of being an insulin-dependent diabetic for 20 years. He states that he ran out of his insulin about 2 weeks ago and ran out of glucometer strips about 10 days ago. He was seen at the [place] [facility] today and his blood sugar was 457. He was then sent to the emergency department for further evaluation. He states that prior to running out of his glucometer strips his blood sugar readings read out as high which he states is greater than 600. He denies any recent fever or chills. He denies any nausea vomiting, diarrhea, constipation or abdominal pain. He denies any urinary frequency, he denies any increased thirst. He denies any fatigue. He denies headache. - Related Data Allergies Allergy/AdvReac Type Severity Reaction Status Date / Time aspirin Allergy Other Verified 03/04/21 11:43 Egg Derived Allergy Hives Verified 03/04/21 11:43 gemfibrozil Allergy Cannot Verified 03/04/21 11:43 Remember latex Allergy Cannot Verified 03/04/21 11:43 Remember Home Meds: Home Meds Metoprolol Succinate [Toprol XL 50mg] 50 mg PO BID 05/20/14 [History] metFORMIN [Glucophage] 1,000 mg PO BIDM 05/20/14 [History] Lisinopril 10 mg PO DAILY 04/25/15 [History] Omeprazole 20 mg PO DAILY 04/25/15 [History] Rosuvastatin Calcium 40 mg PO DAILY 12/27/19 [History] Insulin Aspart [NovoLOG] 1 dose SQ ASDIRECTED PRN #1 pen 03/04/21 [Rx] Insulin Glarg,Human.Rec.Analog [Lantus] 80 unit SQ BEDTIME #1 vial 03/04/21 [Rx] Past Medical History HEENT History: Reports: Impaired Vision Other HEENT History: GLASSES Cardiovascular History: Reports: High Cholesterol, Hypertension, DC Respiratory History: Reports: Sleep Apnea Other Respiratory History: Positive sleep study 15 yrs. ago - stopped CPAP 5 yrs. ago Other Musculoskeletal History: HX OF SCOLIOSIS Neurological History: Reports: CVA Endocrine/Metabolic History: Reports: Diabetes, Type I Other Endocrine/Metabolic History: uncontrolled DM II BS = 268 states his monitor frequently can not read high sugar Hematologic History: Reports: Blood Transfusion(s) - Infectious Disease History Infectious Disease History: Reports: Chicken Pox - Past Surgical History GI Surgical History: Reports: Appendectomy Social & Family History - Tobacco Use Tobacco Use Status *Q: Never Tobacco User Second Hand Smoke Exposure: No - Caffeine Use Caffeine Use: Reports: Coffee - Recreational Drug Use Recreational Drug Use: No - Living Situation & Occupation Living situation: Reports: Single Occupation: Employed ED ROS GENERAL - Review of Systems Review Of Systems: Comprehensive ROS is negative, except as noted in HPI. ED EXAM GENERAL NO PERIP PULSE - Physical Exam Exam: See Below Exam Limited By: No Limitations General Appearance: Alert, WD/WN, No Apparent Distress Eye Exam: Bilateral Eye: PERRL Ears: Normal External Exam, Hearing Grossly Normal Nose: Normal Inspection Throat/Mouth: Normal Inspection, Normal Lips, Normal Oropharynx (Mucous membranes are moist), Normal Voice, No Airway Compromise Head: Atraumatic Neck: Normal Inspection, Supple Respiratory/Chest: No Respiratory Distress, Lungs Clear, Normal Breath Sounds, No Accessory Muscle Use, Chest Non-Tender Cardiovascular: Normal Peripheral Pulses, Regular Rate, Rhythm, No Edema, No Murmur, Tachycardia GI/Abdominal: Normal Bowel Sounds, Soft, Non-Tender, No Distention (Male) Exam: Deferred Rectal (Males) Exam: Deferred Back Exam: Normal Inspection, Full Range of Motion Extremities: Normal Inspection, Normal Range of Motion, Non-Tender, No Pedal Edema, Normal Capillary Refill Neurological: Alert, Oriented, Normal Cognition Psychiatric: Normal Affect, Normal Mood Skin Exam: Warm, Dry, Intact, Normal Color, No Rash Lymphatic: No Adenopathy #1 Interpretation EKG Date: 03/04/21 Time: 12:30 Rhythm: NSR Rate (Beats/Min): 108 [place]: Normal P-Wave: Present QRS: Normal ST-T: Normal QT: Normal EKG Interpretation Comments: Per Dr. Craft interpretation: Sinus tachycardia 108 bpm; QTC mildly prolonged Course - Vital Signs Text/Narrative:: Patient presents to the ER with complaints of high blood sugar. States it read 457 at the [facility] this morning. He states he ran out of his insulin about 2 weeks ago and did not have it refilled and then ran out of his glucometer strips about 10 days ago. He was seen at the [place] [facility] this morning and then was sent to the emergency department for further evaluation. I have ordered labs which includes a CBC, CMP, magnesium, ketones, urinalysis and a liter of normal saline as patient is tachycardic on presentation to the emergency department and likely dehydrated. - Re-Assessments/Exams Free Text/Narrative Re-Assessment/Exam: 03/04/21 13:24 Hematology reveals a WBC of 8.95, hemoglobin 16.0, hematocrit 45.2, platelet count 245, chemistry reveals a sodium of 134, potassium 3.5, chloride 94, carbon dioxide 28, anion gap 15.5, BUN 9, creatinine 1.1, glucose is 465, magnesium 1.5, total bili 1.1, AST 13, ALT 23, ketones are 1.61, Urinalysis reveals 2+ glucose and 2+ ketones otherwise unremarkable. Plasma sodium concentration correction for hyperglycemia is 141.3. This is well within normal limits. Patient will be given 2 g of magnesium IV. Discussed the case with Dr. Craft, he recommends the patient receive 10 units of regular insulin now and another liter of IV fluids. Will recheck his blood sugar in 1 hour. 03/04/21 13:29 The patient's second liter of IVF will be changed to NS with 20meq of potassium 03/04/21 14:00 A1C >14 03/04/21 15:00 Bedside blood glucose is 366. It will likely take a couple of days to get his blood sugars back within a normal range. I will turn over care to ANKUSH Sosa. Departure - Departure Disposition: Home, Self-Care 01 Clinical Impression: Hyperglycemia, Hypomagnesemia - Discharge Information Prescriptions: Insulin Glarg,Human.Rec.Analog [Lantus] 80 unit SQ BEDTIME #1 vial Insulin Aspart [NovoLOG] 1 dose SQ ASDIRECTED PRN #1 pen PRN Reason: Hyperglycemia Instructions: Hypomagnesemia, Hyperglycemia, [id number] Referrals: Nohemy Jacobo NP [Primary Care Provider] - Forms: ED Department Discharge Additional Instructions: You were seen in this ER for your elevated blood sugar readings. You were given some IV fluids, had some labs drawn, and your magnesium was found to be low, you did receive IV magnesium for this. The IV fluids did help to lower your blood sugars. You did also receive 10 units of insulin in the ER. You have been given a prescription for your insulin, to continue on outpatient basis, you will need to fill this and take as directed by your regular care provider. Dosing will be 80 units of Lantus at night, and NovoLog on a sliding scale as needed as laid forth by your regular care provider. This medication was electronically sent to the [place] pharmacy located in the [facility] grocery store. I suggest that you fill these, hold on his receipt and [facility] about [facility] these medications that you needed to fill while waiting for your medications in the mail. Please return to the ER at any time if your symptoms change or worsen. Sepsis Event Note (ED) - Evaluation Sepsis Screening Result: No Definite Risk <Ariadna Rivera V - Last Filed: 03/04/21 15:40> Course - Vital Signs Last Recorded V/S: Last Vital Signs Temp 98.4 F 03/04/21 11:50 Pulse 111 H 03/04/21 11:50 Resp 15 03/04/21 11:50 BP 153/99 H 03/04/21 11:50 Pulse Ox 100 03/04/21 11:50 - Orders/Labs/Meds Orders: Active Orders 24 hr Category Date Time Status Blood Glucose Check, Bedside [RC] ONETIME Care 03/04/21 14:30 Active EKG Documentation Completion [RC] STAT Care 03/04/21 12:14 Active NS + KCl 20mEq/L [Normal Saline with 20 mEq KCl] 1,000 Med 03/04/21 13:30 Active ml IV ASDIRECTED Sodium Chloride 0.9% [Saline Flush] Med 03/04/21 12:15 Active 10 ml FLUSH ASDIRECTED PRN Saline Lock Insert [OM.PC] Stat Oth 03/04/21 12:15 Ordered Medication Orders Potassium Chloride/Sodium Chloride (Normal Saline With 20 Meq Kcl) 1,000 mls @ 999 mls/hr IV ASDIRECTED JANET Last Infusion: 03/04/21 15:25 Dose: 999 mls/hr Documented by: Admin: 03/04/21 13:46 Dose: 475 mls/hr Documented by: MARIAA Sodium Chloride (Sodium Chloride 0.9% 10 Ml Syringe) 10 ml FLUSH ASDIRECTED PRN PRN Reason: Keep Vein Open Last Admin: 03/04/21 11:53 Dose: 10 ml Documented by: MARIAA Labs: Laboratory Tests 03/04/21 03/04/21 03/04/21 Range/Units 11:55 11:55 11:55 WBC 8.95 (4.23-9.07) K/mm3 RBC 5.49 (4.63-6.08) M/mm3 Hgb 16.0 (13.7-17.5) gm/dl Hct 45.2 (40.1-51.0) % MCV 82.3 (79.0-92.2) fl MCH 29.1 (25.7-32.2) pg MCHC 35.4 (32.2-35.5) g/dl RDW Std Deviation 39.6 (35.1-43.9) fL Plt Count 245 (163-337) K/mm3 MPV 11.3 (9.4-12.3) fl Neut % (Auto) 63.2 (34.0-67.9) % Lymph % (Auto) 29.1 (21.8-53.1) % [place] % (Auto) 6.5 (5.3-12.2) % Eos % (Auto) 0.9 (0.8-7.0) Baso % (Auto) 0.3 (0.1-1.2) % Neut # (Auto) 5.66 H (1.78-5.38) K/mm3 Lymph # (Auto) 2.60 (1.32-3.57) K/mm3 [place] # (Auto) 0.58 (0.30-0.82) K/mm3 Eos # (Auto) 0.08 (0.04-0.54) K/mm3 Baso # (Auto) 0.03 (0.01-0.08) K/mm3 Sodium 134 L (136-145) mEq/L Potassium 3.5 (3.5-5.1) mEq/L Chloride 94 L (98-107) mEq/L Carbon Dioxide 28 (21-32) mEq/L Anion Gap 15.5 H (5-15) BUN 9 (7-18) mg/dL Creatinine 1.1 (0.7-1.3) mg/dL Est Cr Clr Drug Dosing 74.98 mL/min Estimated GFR (MDRD) > 60 (>60) mL/min BUN/Creatinine Ratio 8.2 L (14-18) Glucose 465 H* (70-99) mg/dL POC Glucose (70-99) mg/dL Hemoglobin A1c ( - 5.6) % Calcium 9.7 (8.5-10.1) mg/dL Magnesium 1.5 L (1.8-2.4) mg/dL Total Bilirubin 1.1 H (0.2-1.0) mg/dL AST 13 L (15-37) U/L ALT 23 (16-63) U/L Alkaline Phosphatase 85 (46-116) U/L Total Protein 8.0 (6.4-8.2) g/dl Albumin 4.3 (3.4-5.0) g/dl Globulin 3.7 gm/dL Albumin/Globulin Ratio 1.2 (1-2) Urine Color (Yellow) Urine Appearance (Clear) Urine pH (5.0-8.0) Ur Specific [place] (1.005-1.030) Urine Protein (Negative) Urine Glucose (UA) (Negative) Urine Ketones (Negative) Urine Occult Blood (Negative) Urine Nitrite (Negative) Urine Bilirubin (Negative) Urine Urobilinogen (0.2-1.0) Ur Leukocyte Esterase (Negative) Ketones 1.61 (0.0-0.3) mM 03/04/21 03/04/21 03/04/21 Range/Units 11:55 12:13 12:49 WBC (4.23-9.07) K/mm3 RBC (4.63-6.08) M/mm3 Hgb (13.7-17.5) gm/dl Hct (40.1-51.0) % MCV (79.0-92.2) fl MCH (25.7-32.2) pg MCHC (32.2-35.5) g/dl RDW Std Deviation (35.1-43.9) fL Plt Count (163-337) K/mm3 MPV (9.4-12.3) fl Neut % (Auto) (34.0-67.9) % Lymph % (Auto) (21.8-53.1) % [place] % (Auto) (5.3-12.2) % Eos % (Auto) (0.8-7.0) Baso % (Auto) (0.1-1.2) % Neut # (Auto) (1.78-5.38) K/mm3 Lymph # (Auto) (1.32-3.57) K/mm3 [place] # (Auto) (0.30-0.82) K/mm3 Eos # (Auto) (0.04-0.54) K/mm3 Baso # (Auto) (0.01-0.08) K/mm3 Sodium (136-145) mEq/L Potassium (3.5-5.1) mEq/L Chloride (98-107) mEq/L Carbon Dioxide (21-32) mEq/L Anion Gap (5-15) BUN (7-18) mg/dL Creatinine (0.7-1.3) mg/dL Est Cr Clr Drug Dosing mL/min Estimated GFR (MDRD) (>60) mL/min BUN/Creatinine Ratio (14-18) Glucose (70-99) mg/dL POC Glucose 445 H* (70-99) mg/dL Hemoglobin A1c >14.0 H ( - 5.6) % Calcium (8.5-10.1) mg/dL Magnesium (1.8-2.4) mg/dL Total Bilirubin (0.2-1.0) mg/dL AST (15-37) U/L ALT (16-63) U/L Alkaline Phosphatase (46-116) U/L Total Protein (6.4-8.2) g/dl Albumin (3.4-5.0) g/dl Globulin gm/dL Albumin/Globulin Ratio (1-2) Urine Color Yellow (Yellow) Urine Appearance Clear (Clear) Urine pH 5.5 (5.0-8.0) Ur Specific [place] 1.015 (1.005-1.030) Urine Protein Negative (Negative) Urine Glucose (UA) 2+ H (Negative) Urine Ketones 2+ H (Negative) Urine Occult Blood Negative (Negative) Urine Nitrite Negative (Negative) Urine Bilirubin Negative (Negative) Urine Urobilinogen 0.2 (0.2-1.0) Ur Leukocyte Esterase Negative (Negative) Ketones (0.0-0.3) mM 03/04/21 Range/Units 14:52 WBC (4.23-9.07) K/mm3 RBC (4.63-6.08) M/mm3 Hgb (13.7-17.5) gm/dl Hct (40.1-51.0) % MCV (79.0-92.2) fl MCH (25.7-32.2) pg MCHC (32.2-35.5) g/dl RDW Std Deviation (35.1-43.9) fL Plt Count (163-337) K/mm3 MPV (9.4-12.3) fl Neut % (Auto) (34.0-67.9) % Lymph % (Auto) (21.8-53.1) % [place] % (Auto) (5.3-12.2) % Eos % (Auto) (0.8-7.0) Baso % (Auto) (0.1-1.2) % Neut # (Auto) (1.78-5.38) K/mm3 Lymph # (Auto) (1.32-3.57) K/mm3 [place] # (Auto) (0.30-0.82) K/mm3 Eos # (Auto) (0.04-0.54) K/mm3 Baso # (Auto) (0.01-0.08) K/mm3 Sodium (136-145) mEq/L Potassium (3.5-5.1) mEq/L Chloride (98-107) mEq/L Carbon Dioxide (21-32) mEq/L Anion Gap (5-15) BUN (7-18) mg/dL Creatinine (0.7-1.3) mg/dL Est Cr Clr Drug Dosing mL/min Estimated GFR (MDRD) (>60) mL/min BUN/Creatinine Ratio (14-18) Glucose (70-99) mg/dL POC Glucose 366 H (70-99) mg/dL Hemoglobin A1c ( - 5.6) % Calcium (8.5-10.1) mg/dL Magnesium (1.8-2.4) mg/dL Total Bilirubin (0.2-1.0) mg/dL AST (15-37) U/L ALT (16-63) U/L Alkaline Phosphatase (46-116) U/L Total Protein (6.4-8.2) g/dl Albumin (3.4-5.0) g/dl Globulin gm/dL Albumin/Globulin Ratio (1-2) Urine Color (Yellow) Urine Appearance (Clear) Urine pH (5.0-8.0) Ur Specific [place] (1.005-1.030) Urine Protein (Negative) Urine Glucose (UA) (Negative) Urine Ketones (Negative) Urine Occult Blood (Negative) Urine Nitrite (Negative) Urine Bilirubin (Negative) Urine Urobilinogen (0.2-1.0) Ur Leukocyte Esterase (Negative) Ketones (0.0-0.3) mM Meds: Medications Generic Name Dose Route Start Last Admin Trade Name Aashish PRN Reason Stop Dose Admin Potassium Chloride/Sodium Chloride 1,000 mls @ 999 mls/hr 03/04/21 13:30 03/04/21 15:25 Normal Saline With 20 Meq Kcl IV 999 mls/hr ASDIRECTED JANET Infusion Sodium Chloride 10 ml 03/04/21 12:15 03/04/21 11:53 Sodium Chloride 0.9% 10 Ml Syringe FLUSH 10 ml ASDIRECTED PRN Administration Keep Vein Open Discontinued Medications Generic Name Dose Route Start Last Admin Trade Name Aashish PRN Reason Stop Dose Admin Sodium Chloride 1,000 mls @ 999 mls/hr 03/04/21 12:17 03/04/21 12:24 Normal Saline IV 03/04/21 13:17 999 mls/hr ONETIME ONE Administration Magnesium Sulfate 2 gm in 50 mls @ 25 mls/hr 03/04/21 13:19 03/04/21 13:25 Magnesium Sulfate In Water 2 Gm/50 Ml IV 03/04/21 15:18 25 mls/hr ONETIME ONE Administration Insulin Human Regular 10 unit 03/04/21 13:21 03/04/21 13:29 Insulin Regular, Human 100 Units/Ml 3 Ml Vial SUBCUT 03/04/21 13:22 10 unit ONETIME ONE Administration - Re-Assessments/Exams Free Text/Narrative Re-Assessment/Exam: 03/04/21 15:10 Taking over care for Nuzhat Echavarria NP. She did give me a brief report on the patient, plan is to hopefully get him home after his IV magnesium is completed, with Lantus and NovoLog for the next 3 days, until [facility] 03/04/21 15:39 Patient's magnesium is done, we will go ahead and discharge him home, he will have the medications as directed from her previous provider, I did refill his Lantus and NovoLog. Departure - Departure Time of Disposition: 15:11 Condition: Good - Discharge Information *PRESCRIPTION DRUG MONITORING PROGRAM REVIEWED*: No *COPY OF PRESCRIPTION DRUG MONITORING REPORT IN PATIENT GOLDIE: No Sepsis Event Note (ED) - Focused Exam Vital Signs: Vital Signs Temp Pulse Resp BP Pulse Ox 03/04/21 11:50 98.4 F 111 H 15 153/99 H 100
[2021-03-04] MEDS ORDERED: Magnesium Sulfate/Water 2 GM/50 ML BAG IV ONE (13:19)
[2021-03-04] MEDS ORDERED: Insulin Regular, Human 100 Units/ML 3 ML Vial SUBCUT ONE (13:21)
[2021-03-04] MEDS ORDERED: NS + KCl 20mEq/L 1,000 ML IV SCH (13:30)
[2021-03-04 13:48] LABS: HEMOGLOBIN A1C >14.0 %
[2021-03-04 16:01] VITALS: BP 135/87; PULSE 100
== END 2021-03-04 15:50 | disposition home or self-care (01) ==
LOC: JD.ED 11:27
DX: E10.65 Type 1 diabetes mellitus with hyperglycemia (principal); E83.42 Hypomagnesemia; E78.00 Pure hypercholesterolemia, unspecified; I10 Essential (primary) hypertension; I25.2 Old myocardial infarction; M41.9 Scoliosis, unspecified; Z86.73 Personal history of transient ischemic attack (TIA), and cerebral infarction without residual deficits; Z88.6 Allergy status to analgesic agent; Z91.012 Allergy to eggs; Z91.040 Latex allergy status; Z79.899 Other long term (current) drug therapy; Z88.8 Allergy status to other drugs, medicaments and biological substances
CPT/HCPCS: 36415; 80053; 81003; 82009; 82947; 83036; 83735; 85025; 93005; 96365; 96366; 99285; J1815; J3475; J3480; J7030; 93010; 99284

== ENCOUNTER 2021-11-04 14:16 | Emergency (ER) | payer MEDICAID ==
[2021-11-04] MEDS ORDERED: Sodium Chloride 0.9% 10 ML Syringe FLUSH PRN (14:41)
[2021-11-04] MEDS ORDERED: Iopamidol 755 Mg/ML 100 ML Bottle IVPUSH ONE (14:41)
[2021-11-04] MEDS ORDERED: Sodium Chloride 0.9% 100 ML IV SCH (14:45)
[2021-11-04 14:58] VITALS: BP 164/92; PULSE 89
== END 2021-11-04 16:50 | disposition home or self-care (01) ==
LOC: JD.ED 14:16
DX: G51.0 Bell's palsy (principal); E78.00 Pure hypercholesterolemia, unspecified; I10 Essential (primary) hypertension; E10.9 Type 1 diabetes mellitus without complications; I25.2 Old myocardial infarction; Z86.73 Personal history of transient ischemic attack (TIA), and cerebral infarction without residual deficits; Z91.012 Allergy to eggs; Z88.8 Allergy status to other drugs, medicaments and biological substances; Z91.040 Latex allergy status; Z20.822 Contact with and (suspected) exposure to COVID-19
CPT/HCPCS: 36415; 70450; 70496; 70498; 70551; 80053; 82947; 85025; 85610; 87635; 93005; 99284; Q9967; 93010; U0002

== ENCOUNTER 2022-05-06 15:07 | Emergency (ER) | payer OTHER ==
[2022-05-06 15:28] VITALS: BP 140/86; PULSE 96
[2022-05-06] MEDS ORDERED: Insulin Regular, Human 100 Units/ML 3 ML Vial SUBCUT ONE (16:39)
== END 2022-05-06 18:50 | disposition home or self-care (01) ==
LOC: JD.ED 15:07
DX: R07.89 Other chest pain (principal); E11.65 Type 2 diabetes mellitus with hyperglycemia; I25.10 Atherosclerotic heart disease of native coronary artery without angina pectoris; I10 Essential (primary) hypertension; Z86.73 Personal history of transient ischemic attack (TIA), and cerebral infarction without residual deficits; Z88.8 Allergy status to other drugs, medicaments and biological substances; Z91.040 Latex allergy status; Z91.012 Allergy to eggs; Z79.4 Long term (current) use of insulin; Z79.899 Other long term (current) drug therapy
CPT/HCPCS: 36415; 71045; 80053; 82947; 84484; 85025; 93005; 99285; J1815; 93010; 99284

== ENCOUNTER 2023-08-12 13:54 | Emergency (ER) | payer OTHER ==
[2023-08-12] MEDS ORDERED: Sodium Chloride 0.9% 10 ML Syringe FLUSH PRN (14:06)
[2023-08-12 14:36] LABS: BASOPHILS PERCENT AUTO 0.3 % (0.0-1.0); EOSINOPHILS ABSOLUTE AUTO 0.3 K/mm3 (0.0-0.4); EOSINOPHILS PERCENT AUTO 4.4 % (0.0-6.0); HEMATOCRIT 38.8 % (42.0-52.0); HEMOGLOBIN 13.1 gm/dl (14.0-18.0); IMMATURE GRAN ABSOLUTE AUTO 0.01 K/mm3 (0.00-0.05); IMMATURE GRAN PERCENT AUTO 0.1 % (0.0-0.4); LYMPHOCYTES ABSOLUTE AUTO 1.3 K/mm3 (1.0-4.8); LYMPHOCYTES PERCENT AUTO 18.9 % (24.0-44.0); MEAN CORPUSCULAR HEMOGLOBIN 29.4 pg (28.0-32.0); MEAN CORPUSCULAR HGB CONC 33.8 g/dl (32.0-36.0); MEAN CORPUSCULAR VOLUME 87.2 fl (83.0-99.0); MEAN PLATELET VOLUME 10.1 fl (9.4-12.4); MONOCYTES ABSOLUTE AUTO 0.5 K/mm3 (0.0-0.8); MONOCYTES PERCENT AUTO 7.5 % (0.0-8.0); NEUTROPHILS ABSOLUTE AUTO 4.8 K/mm3 (1.8-7.7); NEUTROPHILS PERCENT AUTO 68.8 % (41.0-71.0); PLATELET COUNT,PLT 193 K/mm3 (150-400); RED BLOOD CELL COUNT 4.45 M/mm3 (4.52-5.90); WHITE BLOOD CELL COUNT,WBC 6.97 K/mm3 (3.9-11.3)
[2023-08-12 15:06] LABS: ALBUMIN 3.5 g/dl (3.4-5.0); ANION GAP 12.9 (5-15); BILIRUBIN TOTAL 0.4 mg/dL (0.2-1.0); BUN/CREATININE RATIO 15.8 (14-18); CALCIUM 9.8 mg/dL (8.5-10.1); CREATININE 1.2 mg/dL (0.7-1.3); EST CRCL DRUG DOSING (CG) 71.47 mL/min; MAGNESIUM 1.6 mg/dL (1.8-2.4); POTASSIUM,K 3.9 mEq/L (3.5-5.1); PROTEIN TOTAL,TP 6.9 g/dl (6.4-8.2)
[2023-08-12 15:13] LABS: PROTHROMBIN TIME 9.8 SECONDS (9.7-12.0)
[2023-08-12 15:15] LABS: PTT,PARTIAL THROMBOPLSTIN TIME 24.4 SECONDS (21.7-31.4)
[2023-08-12 15:16] LABS: INR < 0.93
[2023-08-12 15:47] VITALS: BP 122/77; PULSE 99
== END 2023-08-12 15:40 | disposition home or self-care (01) ==
LOC: JD.ED 13:54
DX: R07.89 Other chest pain (principal); E78.00 Pure hypercholesterolemia, unspecified; I10 Essential (primary) hypertension; I25.2 Old myocardial infarction; Z86.73 Personal history of transient ischemic attack (TIA), and cerebral infarction without residual deficits; E11.9 Type 2 diabetes mellitus without complications; Z79.4 Long term (current) use of insulin; Z79.84 Long term (current) use of oral hypoglycemic drugs; Z79.899 Other long term (current) drug therapy; Z88.6 Allergy status to analgesic agent; Z91.040 Latex allergy status; Z88.8 Allergy status to other drugs, medicaments and biological substances
CPT/HCPCS: 36415; 71045; 71045-26; 80053; 83735; 83880; 84484; 85025; 85379; 85610; 85730; 93005; 99285

== ENCOUNTER 2024-04-17 13:52 | Emergency (ER) | payer OTHER ==
[2024-04-17 14:20] VITALS: BP 152/93; PULSE 91
[2024-04-17] MEDS ORDERED: Sodium Chloride 0.9% 1,000 ML IV SCH (14:30)
[2024-04-17 14:41] LABS: BASOPHILS PERCENT AUTO 0.5 % (0.0-1.0); EOSINOPHILS ABSOLUTE AUTO 0.2 K/mm3 (0.0-0.4); EOSINOPHILS PERCENT AUTO 2.9 % (0.0-6.0); HEMATOCRIT 39.3 % (42.0-52.0); HEMOGLOBIN 13.4 gm/dl (14.0-18.0); IMMATURE GRAN ABSOLUTE AUTO 0.02 K/mm3 (0.00-0.05); IMMATURE GRAN PERCENT AUTO 0.3 % (0.0-0.4); LYMPHOCYTES PERCENT AUTO 25.4 % (24.0-44.0); MEAN CORPUSCULAR HEMOGLOBIN 28.7 pg (28.0-32.0); MEAN CORPUSCULAR HGB CONC 34.1 g/dl (32.0-36.0); MEAN CORPUSCULAR VOLUME 84.2 fl (83.0-99.0); MEAN PLATELET VOLUME 10.7 fl (9.4-12.4); MONOCYTES ABSOLUTE AUTO 0.5 K/mm3 (0.0-0.8); MONOCYTES PERCENT AUTO 6.4 % (0.0-8.0); NEUTROPHILS PERCENT AUTO 64.5 % (41.0-71.0); PLATELET COUNT,PLT 208 K/mm3 (150-400); RED BLOOD CELL COUNT 4.67 M/mm3 (4.52-5.90)
[2024-04-17 15:13] LABS: ALBUMIN 3.4 g/dl (3.4-5.0); ANION GAP 15.1 (5-15); BILIRUBIN TOTAL 0.6 mg/dL (0.2-1.0); BUN/CREATININE RATIO 5.4 (14-18); CALCIUM 9.1 mg/dL (8.5-10.1); CREATININE 1.3 mg/dL (0.7-1.3); EST CRCL DRUG DOSING (CG) 63.17 mL/min; MAGNESIUM 1.4 mg/dL (1.8-2.4); POTASSIUM,K 3.1 mEq/L (3.5-5.1); PROTEIN TOTAL,TP 6.7 g/dl (6.4-8.2)
[2024-04-17 15:28] LABS: HEMOGLOBIN A1C >14.0 %
== END 2024-04-17 15:10 | disposition home or self-care (01) ==
LOC: JD.ED 13:52
DX: H53.9 Unspecified visual disturbance (principal); I10 Essential (primary) hypertension; I25.2 Old myocardial infarction; E78.00 Pure hypercholesterolemia, unspecified; E11.9 Type 2 diabetes mellitus without complications; Z86.73 Personal history of transient ischemic attack (TIA), and cerebral infarction without residual deficits; Z90.49 Acquired absence of other specified parts of digestive tract; Z79.84 Long term (current) use of oral hypoglycemic drugs; Z79.4 Long term (current) use of insulin; Z88.5 Allergy status to narcotic agent; Z88.8 Allergy status to other drugs, medicaments and biological substances; Z91.040 Latex allergy status; Z91.012 Allergy to eggs
CPT/HCPCS: 36415; 70450; 70450-26; 80053; 82947; 83036; 83735; 85025; 93005; 93010; 99282; 99284

== ENCOUNTER 2024-05-18 10:44 | Emergency (ER) | payer OTHER ==
[2024-05-18 11:08] VITALS: PULSE 92
[2024-05-18] MEDS: Ketorolac 30 MG/ML SDV IM ONE (12:19)
[2024-05-18 16:34] VITALS: BP 148/90
== END 2024-05-18 12:22 | disposition home or self-care (01) ==
LOC: JD.ED 10:44
DX: S00.83XA Contusion of other part of head, initial encounter (principal); G44.319 Acute post-traumatic headache, not intractable; M54.2 Cervicalgia; I10 Essential (primary) hypertension; I25.2 Old myocardial infarction; E11.9 Type 2 diabetes mellitus without complications; Z88.8 Allergy status to other drugs, medicaments and biological substances; Z91.012 Allergy to eggs; Z91.040 Latex allergy status; Z79.4 Long term (current) use of insulin; Z79.84 Long term (current) use of oral hypoglycemic drugs; Z79.899 Other long term (current) drug therapy; Z90.49 Acquired absence of other specified parts of digestive tract; W01.0XXA Fall on same level from slipping, tripping and stumbling without subsequent striking against object, initial encounter
CPT/HCPCS: 70450; 70486; 72125; 96372; 99284; J1885; 99283

== ENCOUNTER 2024-09-26 19:07 | Emergency (ER) | payer OTHER ==
[2024-09-26 19:24] VITALS: PULSE 97
[2024-09-26] MEDS ORDERED: Sodium Chloride 0.9% 10 ML Syringe FLUSH PRN (21:34)
[2024-09-26] MEDS ORDERED: Sodium Chloride 0.9% 100 ML IV SCH (21:45)
[2024-09-26 21:47] LABS: BASOPHILS PERCENT AUTO 0.4 % (0.0-1.0); EOSINOPHILS ABSOLUTE AUTO 0.3 K/mm3 (0.0-0.4); EOSINOPHILS PERCENT AUTO 3.2 % (0.0-6.0); HEMATOCRIT 37.9 % (42.0-52.0); HEMOGLOBIN 12.7 gm/dl (14.0-18.0); IMMATURE GRAN ABSOLUTE AUTO 0.03 K/mm3 (0.00-0.05); IMMATURE GRAN PERCENT AUTO 0.3 % (0.0-0.4); LYMPHOCYTES PERCENT AUTO 27.9 % (24.0-44.0); MEAN CORPUSCULAR HEMOGLOBIN 29.1 pg (28.0-32.0); MEAN CORPUSCULAR HGB CONC 33.5 g/dl (32.0-36.0); MEAN CORPUSCULAR VOLUME 86.7 fl (83.0-99.0); MEAN PLATELET VOLUME 10.4 fl (9.4-12.4); MONOCYTES ABSOLUTE AUTO 0.8 K/mm3 (0.0-0.8); MONOCYTES PERCENT AUTO 7.8 % (0.0-8.0); NEUTROPHILS ABSOLUTE AUTO 6.5 K/mm3 (1.8-7.7); NEUTROPHILS PERCENT AUTO 60.4 % (41.0-71.0); PLATELET COUNT,PLT 239 K/mm3 (150-400); RED BLOOD CELL COUNT 4.37 M/mm3 (4.52-5.90); WHITE BLOOD CELL COUNT,WBC 10.78 K/mm3 (3.9-11.3)
[2024-09-26] MEDS: Iopamidol 755 Mg/ML 100 ML Bottle IVPUSH ONE (22:11)
[2024-09-26 22:13] LABS: A/G RATIO 1.1 (1-2); ALBUMIN 3.6 g/dl (3.4-5.0); BILIRUBIN TOTAL 0.3 mg/dL (0.2-1.0); BUN/CREATININE RATIO 12.9 (14-18); CREATININE 1.7 mg/dL (0.7-1.3); EST CRCL DRUG DOSING (CG) 48.31 mL/min; MAGNESIUM 1.4 mg/dL (1.8-2.4); PROTEIN TOTAL,TP 6.8 g/dl (6.4-8.2)
[2024-09-27 00:48] VITALS: BP 101/79
== END 2024-09-27 00:59 | disposition home or self-care (01) ==
LOC: JD.ED 19:07
DX: G57.02 Lesion of sciatic nerve, left lower limb (principal); I10 Essential (primary) hypertension; I25.2 Old myocardial infarction; E78.00 Pure hypercholesterolemia, unspecified; E11.9 Type 2 diabetes mellitus without complications; Z90.49 Acquired absence of other specified parts of digestive tract; Z79.84 Long term (current) use of oral hypoglycemic drugs; Z79.899 Other long term (current) drug therapy; Z88.6 Allergy status to analgesic agent; Z91.040 Latex allergy status; Z91.012 Allergy to eggs; Z88.8 Allergy status to other drugs, medicaments and biological substances
CPT/HCPCS: 36415; 70450; 70496; 70498; 80053; 83735; 85025; 93005; 99284; Q9967; 93010

== ENCOUNTER 2025-08-17 15:04 | Inpatient (IN) | payer OTHER ==
[2025-08-17] MEDS: VANCOmycin 2 GM/400 ML 2 GM in Premix Bag 1 BAG IV ONE (16:44)
[2025-08-17] MEDS: Sodium Chloride 0.9% 10 ML Syringe FLUSH PRN (16:44)
[2025-08-17 16:53] LABS: MEAN PLATELET VOLUME 10.1 fl (9.4-12.4); NRBC ABSOLUTE 0.00 (0.00-0.02); NRBC PERCENT 0.0 % (0.0-0.2); PLATELET COUNT,PLT 349 K/mm3 (150-400); RED BLOOD CELL COUNT 4.79 M/mm3 (4.52-5.90); WHITE BLOOD CELL COUNT,WBC 10.66 K/mm3 (3.9-11.3)
[2025-08-17 17:11] LABS: INR 0.94
[2025-08-17 17:13] LABS: A/G RATIO 0.9 (1-2); ALANINE AMINOTRANSFERASE,ALT 22.0 U/L (16-63); ASPARTATE AMNIOTRANSFERASE,AST 10.0 U/L (15-37); BILIRUBIN TOTAL 0.4 mg/dL (0.2-1.0); BLOOD UREA NITROGEN,BUN 21.0 mg/dL (7-18); CARBON DIOXIDE,CO2 29.0 mEq/L (21-32); CHLORIDE,CL 97.0 mEq/L (98-107); CREATININE 1.5 mg/dL (0.7-1.3); EST CRCL DRUG DOSING (CG) 54.07 mL/min; ESTIMATED GFR 53.0 mL/min (>60); GLUCOSE RANDOM 90.0 mg/dL (70-99); POTASSIUM,K 3.4 mEq/L (3.5-5.1); PROTEIN TOTAL,TP 7.8 g/dl (6.4-8.2); SODIUM,NA 136.0 mEq/L (136-145)
[2025-08-17 17:19] LABS: LACTIC ACID 2.0 mmol/L (0.4-2.0)
[2025-08-17 17:45] LABS: BAND PERCENT MAN 0 % (0-10); BASOPHILS PERCENT MAN 1 (0.2-1.2); EOSINOPHILS PERCENT MAN 3 % (0.8-7.0); LYMPHOCYTES PERCENT MAN 32 % (20-40); MONOCYTES PERCENT MAN 4 % (2-10)
[2025-08-17 17:46] LABS: PLATELET COUNT ESTIMATE ADEQUATE
[2025-08-17] MEDS ORDERED: Ondansetron 4 MG/2 ML SDV IV PRN (19:01)
[2025-08-17] MEDS ORDERED: 50% Dextrose in Water 50 ML Syringe IVPUSH PRN (19:06)
[2025-08-17 20:59] LABS: APPEARANCE,URINE CLEAR (Clear); GLUCOSE,URINE 2+ (Negative); OCCULT BLOOD,URINE NEGATIVE (Negative)
[2025-08-17 21:05] LABS: EPITHELIAL CELLS,URINE 0-5 /hpf (0-5)
[2025-08-17] MEDS: Insulin Lispro 100 Unit/ML 3 ML KwikPen SUBCUT SCH (21:29)
[2025-08-18] MEDS: Cefepime 2 GM in Water For Injection, Sterile 20 ML IVPUSH SCH (00:40)
[2025-08-18 05:56] LABS: BASOPHILS ABSOLUTE AUTO 0.0 K/mm3 (0.0-0.2); BASOPHILS PERCENT AUTO 0.4 % (0.0-1.0); EOSINOPHILS ABSOLUTE AUTO 0.3 K/mm3 (0.0-0.4); EOSINOPHILS PERCENT AUTO 4.5 % (0.0-6.0); IMMATURE GRAN ABSOLUTE AUTO 0.04 K/mm3 (0.00-0.05); IMMATURE GRAN PERCENT AUTO 0.6 % (0.0-0.4); LYMPHOCYTES ABSOLUTE AUTO 1.9 K/mm3 (1.0-4.8); LYMPHOCYTES PERCENT AUTO 26.8 % (24.0-44.0); MEAN PLATELET VOLUME 10.5 fl (9.4-12.4); MONOCYTES ABSOLUTE AUTO 0.6 K/mm3 (0.0-0.8); MONOCYTES PERCENT AUTO 7.8 % (0.0-8.0); NEUTROPHILS ABSOLUTE AUTO 4.2 K/mm3 (1.8-7.7); NEUTROPHILS PERCENT AUTO 59.9 % (41.0-71.0); NRBC ABSOLUTE 0.00 (0.00-0.02); NRBC PERCENT 0.0 % (0.0-0.2); PLATELET COUNT,PLT 264 K/mm3 (150-400); RED BLOOD CELL COUNT 4.19 M/mm3 (4.52-5.90); WHITE BLOOD CELL COUNT,WBC 7.04 K/mm3 (3.9-11.3)
[2025-08-18 06:22] LABS: A/G RATIO 0.8 (1-2); ALANINE AMINOTRANSFERASE,ALT 17.0 U/L (16-63); ASPARTATE AMNIOTRANSFERASE,AST 9.0 U/L (15-37); BILIRUBIN TOTAL 0.5 mg/dL (0.2-1.0); BLOOD UREA NITROGEN,BUN 17.0 mg/dL (7-18); CARBON DIOXIDE,CO2 27.0 mEq/L (21-32); CHLORIDE,CL 102.0 mEq/L (98-107); CREATININE 1.0 mg/dL (0.7-1.3); EST CRCL DRUG DOSING (CG) 81.11 mL/min; ESTIMATED GFR 86.0 mL/min (>60); GLUCOSE RANDOM 351.0 mg/dL (70-99); POTASSIUM,K 4.1 mEq/L (3.5-5.1); PROTEIN TOTAL,TP 6.2 g/dl (6.4-8.2); SODIUM,NA 136.0 mEq/L (136-145)
[2025-08-18] MEDS: Insulin Glargine,Human Rec. Analog 100 Units/ML 3 ML Pen SUBCUT SCH (11:43)
[2025-08-19 08:15] LABS: BASOPHILS ABSOLUTE AUTO 0.0 K/mm3 (0.0-0.2); BASOPHILS PERCENT AUTO 0.5 % (0.0-1.0); EOSINOPHILS ABSOLUTE AUTO 0.3 K/mm3 (0.0-0.4); EOSINOPHILS PERCENT AUTO 4.3 % (0.0-6.0); IMMATURE GRAN ABSOLUTE AUTO 0.03 K/mm3 (0.00-0.05); IMMATURE GRAN PERCENT AUTO 0.4 % (0.0-0.4); LYMPHOCYTES ABSOLUTE AUTO 2.1 K/mm3 (1.0-4.8); LYMPHOCYTES PERCENT AUTO 27.8 % (24.0-44.0); MEAN PLATELET VOLUME 9.6 fl (9.4-12.4); MONOCYTES ABSOLUTE AUTO 0.4 K/mm3 (0.0-0.8); MONOCYTES PERCENT AUTO 5.6 % (0.0-8.0); NEUTROPHILS ABSOLUTE AUTO 4.7 K/mm3 (1.8-7.7); NEUTROPHILS PERCENT AUTO 61.4 % (41.0-71.0); NRBC ABSOLUTE 0.00 (0.00-0.02); NRBC PERCENT 0.0 % (0.0-0.2); PLATELET COUNT,PLT 283 K/mm3 (150-400); RED BLOOD CELL COUNT 4.36 M/mm3 (4.52-5.90); WHITE BLOOD CELL COUNT,WBC 7.70 K/mm3 (3.9-11.3)
[2025-08-19 08:48] LABS: BLOOD UREA NITROGEN,BUN 14.0 mg/dL (7-18); CARBON DIOXIDE,CO2 28.0 mEq/L (21-32); CHLORIDE,CL 106.0 mEq/L (98-107); CREATININE 1.0 mg/dL (0.7-1.3); EST CRCL DRUG DOSING (CG) 81.11 mL/min; ESTIMATED GFR 86.0 mL/min (>60); GLUCOSE RANDOM 217.0 mg/dL (70-99); POTASSIUM,K 3.7 mEq/L (3.5-5.1); SODIUM,NA 140.0 mEq/L (136-145)
[2025-08-20 05:35] LABS: BASOPHILS ABSOLUTE AUTO 0.0 K/mm3 (0.0-0.2); BASOPHILS PERCENT AUTO 0.5 % (0.0-1.0); EOSINOPHILS ABSOLUTE AUTO 0.2 K/mm3 (0.0-0.4); EOSINOPHILS PERCENT AUTO 2.7 % (0.0-6.0); IMMATURE GRAN ABSOLUTE AUTO 0.02 K/mm3 (0.00-0.05); IMMATURE GRAN PERCENT AUTO 0.3 % (0.0-0.4); LYMPHOCYTES ABSOLUTE AUTO 2.1 K/mm3 (1.0-4.8); LYMPHOCYTES PERCENT AUTO 27.3 % (24.0-44.0); MEAN PLATELET VOLUME 9.8 fl (9.4-12.4); MONOCYTES ABSOLUTE AUTO 0.5 K/mm3 (0.0-0.8); MONOCYTES PERCENT AUTO 7.0 % (0.0-8.0); NEUTROPHILS ABSOLUTE AUTO 4.8 K/mm3 (1.8-7.7); NEUTROPHILS PERCENT AUTO 62.2 % (41.0-71.0); NRBC ABSOLUTE 0.00 (0.00-0.02); NRBC PERCENT 0.0 % (0.0-0.2); PLATELET COUNT,PLT 274 K/mm3 (150-400); RED BLOOD CELL COUNT 4.31 M/mm3 (4.52-5.90); WHITE BLOOD CELL COUNT,WBC 7.66 K/mm3 (3.9-11.3)
[2025-08-20 05:55] LABS: A/G RATIO 0.8 (1-2); ALANINE AMINOTRANSFERASE,ALT 15.0 U/L (16-63); ASPARTATE AMNIOTRANSFERASE,AST 11.0 U/L (15-37); BILIRUBIN TOTAL 0.4 mg/dL (0.2-1.0); BLOOD UREA NITROGEN,BUN 11.0 mg/dL (7-18); CARBON DIOXIDE,CO2 29.0 mEq/L (21-32); CHLORIDE,CL 106.0 mEq/L (98-107); CREATININE 0.9 mg/dL (0.7-1.3); EST CRCL DRUG DOSING (CG) 90.12 mL/min; ESTIMATED GFR 98.0 mL/min (>60); GLUCOSE RANDOM 77.0 mg/dL (70-99); POTASSIUM,K 3.4 mEq/L (3.5-5.1); PROTEIN TOTAL,TP 6.3 g/dl (6.4-8.2); SODIUM,NA 143.0 mEq/L (136-145)
[2025-08-21 04:34] LABS: BASOPHILS ABSOLUTE AUTO 0.1 K/mm3 (0.0-0.2); BASOPHILS PERCENT AUTO 0.7 % (0.0-1.0); EOSINOPHILS ABSOLUTE AUTO 0.3 K/mm3 (0.0-0.4); EOSINOPHILS PERCENT AUTO 4.2 % (0.0-6.0); IMMATURE GRAN ABSOLUTE AUTO 0.01 K/mm3 (0.00-0.05); IMMATURE GRAN PERCENT AUTO 0.1 % (0.0-0.4); LYMPHOCYTES ABSOLUTE AUTO 2.4 K/mm3 (1.0-4.8); LYMPHOCYTES PERCENT AUTO 32.8 % (24.0-44.0); MEAN PLATELET VOLUME 9.7 fl (9.4-12.4); MONOCYTES ABSOLUTE AUTO 0.6 K/mm3 (0.0-0.8); MONOCYTES PERCENT AUTO 8.6 % (0.0-8.0); NEUTROPHILS ABSOLUTE AUTO 4.0 K/mm3 (1.8-7.7); NEUTROPHILS PERCENT AUTO 53.6 % (41.0-71.0); NRBC ABSOLUTE 0.00 (0.00-0.02); NRBC PERCENT 0.0 % (0.0-0.2); PLATELET COUNT,PLT 290 K/mm3 (150-400); RED BLOOD CELL COUNT 4.24 M/mm3 (4.52-5.90); WHITE BLOOD CELL COUNT,WBC 7.41 K/mm3 (3.9-11.3)
[2025-08-21 04:56] LABS: A/G RATIO 0.8 (1-2); ALANINE AMINOTRANSFERASE,ALT 13.0 U/L (16-63); ASPARTATE AMNIOTRANSFERASE,AST 12.0 U/L (15-37); BILIRUBIN TOTAL 0.3 mg/dL (0.2-1.0); BLOOD UREA NITROGEN,BUN 14.0 mg/dL (7-18); CARBON DIOXIDE,CO2 31.0 mEq/L (21-32); CHLORIDE,CL 105.0 mEq/L (98-107); CREATININE 0.8 mg/dL (0.7-1.3); EST CRCL DRUG DOSING (CG) 101.39 mL/min; ESTIMATED GFR 101.0 mL/min (>60); GLUCOSE RANDOM 69.0 mg/dL (70-99); POTASSIUM,K 3.5 mEq/L (3.5-5.1); PROTEIN TOTAL,TP 6.2 g/dl (6.4-8.2); SODIUM,NA 143.0 mEq/L (136-145)
[2025-08-21] MEDS: VANCOmycin 1.25 GM/250 ML 1.25 GM in Premix Bag 1 BAG IV SCH (09:21)
[2025-08-22 04:26] LABS: BASOPHILS ABSOLUTE AUTO 0.1 K/mm3 (0.0-0.2); BASOPHILS PERCENT AUTO 0.7 % (0.0-1.0); EOSINOPHILS ABSOLUTE AUTO 0.4 K/mm3 (0.0-0.4); EOSINOPHILS PERCENT AUTO 4.2 % (0.0-6.0); IMMATURE GRAN ABSOLUTE AUTO 0.03 K/mm3 (0.00-0.05); IMMATURE GRAN PERCENT AUTO 0.4 % (0.0-0.4); LYMPHOCYTES ABSOLUTE AUTO 2.3 K/mm3 (1.0-4.8); LYMPHOCYTES PERCENT AUTO 27.6 % (24.0-44.0); MEAN PLATELET VOLUME 9.8 fl (9.4-12.4); MONOCYTES ABSOLUTE AUTO 0.7 K/mm3 (0.0-0.8); MONOCYTES PERCENT AUTO 8.9 % (0.0-8.0); NEUTROPHILS ABSOLUTE AUTO 4.9 K/mm3 (1.8-7.7); NEUTROPHILS PERCENT AUTO 58.2 % (41.0-71.0); NRBC ABSOLUTE 0.00 (0.00-0.02); NRBC PERCENT 0.0 % (0.0-0.2); PLATELET COUNT,PLT 315 K/mm3 (150-400); RED BLOOD CELL COUNT 4.38 M/mm3 (4.52-5.90); WHITE BLOOD CELL COUNT,WBC 8.33 K/mm3 (3.9-11.3)
[2025-08-22 04:56] LABS: A/G RATIO 0.8 (1-2); ALANINE AMINOTRANSFERASE,ALT 16.0 U/L (16-63); ASPARTATE AMNIOTRANSFERASE,AST 14.0 U/L (15-37); BILIRUBIN TOTAL 0.4 mg/dL (0.2-1.0); BLOOD UREA NITROGEN,BUN 21.0 mg/dL (7-18); CARBON DIOXIDE,CO2 26.0 mEq/L (21-32); CHLORIDE,CL 107.0 mEq/L (98-107); CREATININE 1.0 mg/dL (0.7-1.3); EST CRCL DRUG DOSING (CG) 81.11 mL/min; ESTIMATED GFR 86.0 mL/min (>60); GLUCOSE RANDOM 69.0 mg/dL (70-99); POTASSIUM,K 4.2 mEq/L (3.5-5.1); PROTEIN TOTAL,TP 6.4 g/dl (6.4-8.2); SODIUM,NA 141.0 mEq/L (136-145); VANCOMYCIN RANDOM 31.0 ug/mL
[2025-08-22] MEDS: metroNIDAZOLE/Normal Saline 500 MG in Premix Bag 1 BAG IV SCH (13:19)
[2025-08-22] MEDS: VANCOmycin 1.25 GM/250 ML 1.25 GM in Premix Bag 1 BAG IV SCH (15:18)
[2025-08-23 04:51] LABS: BASOPHILS ABSOLUTE AUTO 0.1 K/mm3 (0.0-0.2); BASOPHILS PERCENT AUTO 0.9 % (0.0-1.0); EOSINOPHILS ABSOLUTE AUTO 0.4 K/mm3 (0.0-0.4); EOSINOPHILS PERCENT AUTO 4.9 % (0.0-6.0); IMMATURE GRAN ABSOLUTE AUTO 0.02 K/mm3 (0.00-0.05); IMMATURE GRAN PERCENT AUTO 0.3 % (0.0-0.4); LYMPHOCYTES ABSOLUTE AUTO 2.3 K/mm3 (1.0-4.8); LYMPHOCYTES PERCENT AUTO 28.9 % (24.0-44.0); MEAN PLATELET VOLUME 10.1 fl (9.4-12.4); MONOCYTES ABSOLUTE AUTO 0.8 K/mm3 (0.0-0.8); MONOCYTES PERCENT AUTO 10.4 % (0.0-8.0); NEUTROPHILS ABSOLUTE AUTO 4.3 K/mm3 (1.8-7.7); NEUTROPHILS PERCENT AUTO 54.6 % (41.0-71.0); NRBC ABSOLUTE 0.00 (0.00-0.02); NRBC PERCENT 0.0 % (0.0-0.2); PLATELET COUNT,PLT 294 K/mm3 (150-400); RED BLOOD CELL COUNT 4.42 M/mm3 (4.52-5.90); WHITE BLOOD CELL COUNT,WBC 7.89 K/mm3 (3.9-11.3)
[2025-08-23 05:31] LABS: A/G RATIO 0.8 (1-2); ALANINE AMINOTRANSFERASE,ALT 18.0 U/L (16-63); ASPARTATE AMNIOTRANSFERASE,AST 17.0 U/L (15-37); BILIRUBIN TOTAL 0.4 mg/dL (0.2-1.0); BLOOD UREA NITROGEN,BUN 23.0 mg/dL (7-18); CARBON DIOXIDE,CO2 27.0 mEq/L (21-32); CHLORIDE,CL 105.0 mEq/L (98-107); CREATININE 1.1 mg/dL (0.7-1.3); EST CRCL DRUG DOSING (CG) 73.74 mL/min; ESTIMATED GFR 77.0 mL/min (>60); GLUCOSE RANDOM 137.0 mg/dL (70-99); POTASSIUM,K 4.2 mEq/L (3.5-5.1); PROTEIN TOTAL,TP 6.4 g/dl (6.4-8.2); SODIUM,NA 139.0 mEq/L (136-145)
[2025-08-24 10:52] LABS: CREATININE 1.1 mg/dL (0.7-1.3); EST CRCL DRUG DOSING (CG) 73.74 mL/min; ESTIMATED GFR 77.0 mL/min (>60)
[2025-08-24] MEDS: Insulin Glargine,Human Rec. Analog 100 Units/ML 3 ML Pen SUBCUT SCH (22:32)
[2025-08-27 05:52] LABS: BASOPHILS ABSOLUTE AUTO 0.1 K/mm3 (0.0-0.2); BASOPHILS PERCENT AUTO 0.6 % (0.0-1.0); EOSINOPHILS ABSOLUTE AUTO 0.3 K/mm3 (0.0-0.4); EOSINOPHILS PERCENT AUTO 4.2 % (0.0-6.0); IMMATURE GRAN ABSOLUTE AUTO 0.02 K/mm3 (0.00-0.05); IMMATURE GRAN PERCENT AUTO 0.3 % (0.0-0.4); LYMPHOCYTES ABSOLUTE AUTO 2.1 K/mm3 (1.0-4.8); LYMPHOCYTES PERCENT AUTO 26.3 % (24.0-44.0); MEAN PLATELET VOLUME 9.7 fl (9.4-12.4); MONOCYTES ABSOLUTE AUTO 0.7 K/mm3 (0.0-0.8); MONOCYTES PERCENT AUTO 9.5 % (0.0-8.0); NEUTROPHILS ABSOLUTE AUTO 4.6 K/mm3 (1.8-7.7); NEUTROPHILS PERCENT AUTO 59.1 % (41.0-71.0); NRBC ABSOLUTE 0.00 (0.00-0.02); NRBC PERCENT 0.0 % (0.0-0.2); PLATELET COUNT,PLT 282 K/mm3 (150-400); RED BLOOD CELL COUNT 4.40 M/mm3 (4.52-5.90); WHITE BLOOD CELL COUNT,WBC 7.82 K/mm3 (3.9-11.3)
[2025-08-27 06:20] LABS: A/G RATIO 0.9 (1-2); ALANINE AMINOTRANSFERASE,ALT 55 U/L (16-63); ASPARTATE AMNIOTRANSFERASE,AST 51 U/L (15-37); BILIRUBIN TOTAL 0.3 mg/dL (0.2-1.0); BLOOD UREA NITROGEN,BUN 22 mg/dL (7-18); CARBON DIOXIDE,CO2 27 mEq/L (21-32); CHLORIDE,CL 104 mEq/L (98-107); CREATININE 1.0 mg/dL (0.7-1.3); EST CRCL DRUG DOSING (CG) 81.11 mL/min; ESTIMATED GFR 86 mL/min (>60); GLUCOSE RANDOM 109 mg/dL (70-99); POTASSIUM,K 4.1 mEq/L (3.5-5.1); PROTEIN TOTAL,TP 6.6 g/dl (6.4-8.2); SODIUM,NA 138 mEq/L (136-145)
[2025-08-31 08:11] LABS: CREATININE 1.1 mg/dL (0.7-1.3); EST CRCL DRUG DOSING (CG) 73.74 mL/min; ESTIMATED GFR 77.0 mL/min (>60)
[2025-09-01] MEDS: VANCOmycin 1.5 GM/300 ML 1.5 GM in Premix Bag 1 BAG IV SCH (09:01)
[2025-09-03 05:31] LABS: BASOPHILS ABSOLUTE AUTO 0.1 K/mm3 (0.0-0.2); BASOPHILS PERCENT AUTO 0.9 % (0.0-1.0); EOSINOPHILS ABSOLUTE AUTO 0.4 K/mm3 (0.0-0.4); EOSINOPHILS PERCENT AUTO 5.5 % (0.0-6.0); IMMATURE GRAN ABSOLUTE AUTO 0.02 K/mm3 (0.00-0.05); IMMATURE GRAN PERCENT AUTO 0.3 % (0.0-0.4); LYMPHOCYTES ABSOLUTE AUTO 1.9 K/mm3 (1.0-4.8); LYMPHOCYTES PERCENT AUTO 23.8 % (24.0-44.0); MEAN PLATELET VOLUME 9.9 fl (9.4-12.4); MONOCYTES ABSOLUTE AUTO 0.6 K/mm3 (0.0-0.8); MONOCYTES PERCENT AUTO 8.2 % (0.0-8.0); NEUTROPHILS ABSOLUTE AUTO 4.8 K/mm3 (1.8-7.7); NEUTROPHILS PERCENT AUTO 61.3 % (41.0-71.0); NRBC ABSOLUTE 0.00 (0.00-0.02); NRBC PERCENT 0.0 % (0.0-0.2); PLATELET COUNT,PLT 275 K/mm3 (150-400); RED BLOOD CELL COUNT 4.51 M/mm3 (4.52-5.90); WHITE BLOOD CELL COUNT,WBC 7.83 K/mm3 (3.9-11.3)
[2025-09-03 05:57] LABS: A/G RATIO 0.9 (1-2); ALANINE AMINOTRANSFERASE,ALT 26 U/L (16-63); ASPARTATE AMNIOTRANSFERASE,AST 18 U/L (15-37); BILIRUBIN TOTAL 0.3 mg/dL (0.2-1.0); BLOOD UREA NITROGEN,BUN 31 mg/dL (7-18); CARBON DIOXIDE,CO2 28 mEq/L (21-32); CHLORIDE,CL 104 mEq/L (98-107); CREATININE 1.1 mg/dL (0.7-1.3); EST CRCL DRUG DOSING (CG) 73.74 mL/min; ESTIMATED GFR 77 mL/min (>60); GLUCOSE RANDOM 87 mg/dL (70-99); POTASSIUM,K 4.3 mEq/L (3.5-5.1); PROTEIN TOTAL,TP 6.6 g/dl (6.4-8.2); SODIUM,NA 138 mEq/L (136-145)
[2025-09-10 05:54] LABS: BASOPHILS ABSOLUTE AUTO 0.1 K/mm3 (0.0-0.2); BASOPHILS PERCENT AUTO 0.6 % (0.0-1.0); EOSINOPHILS ABSOLUTE AUTO 0.5 K/mm3 (0.0-0.4); EOSINOPHILS PERCENT AUTO 6.2 % (0.0-6.0); IMMATURE GRAN ABSOLUTE AUTO 0.03 K/mm3 (0.00-0.05); IMMATURE GRAN PERCENT AUTO 0.4 % (0.0-0.4); LYMPHOCYTES ABSOLUTE AUTO 2.1 K/mm3 (1.0-4.8); LYMPHOCYTES PERCENT AUTO 27.2 % (24.0-44.0); MEAN PLATELET VOLUME 10.3 fl (9.4-12.4); MONOCYTES ABSOLUTE AUTO 0.7 K/mm3 (0.0-0.8); MONOCYTES PERCENT AUTO 8.3 % (0.0-8.0); NEUTROPHILS ABSOLUTE AUTO 4.5 K/mm3 (1.8-7.7); NEUTROPHILS PERCENT AUTO 57.3 % (41.0-71.0); NRBC ABSOLUTE 0.00 (0.00-0.02); NRBC PERCENT 0.0 % (0.0-0.2); PLATELET COUNT,PLT 229 K/mm3 (150-400); RED BLOOD CELL COUNT 4.37 M/mm3 (4.52-5.90); WHITE BLOOD CELL COUNT,WBC 7.86 K/mm3 (3.9-11.3)
[2025-09-10 06:19] LABS: A/G RATIO 0.9 (1-2); ALANINE AMINOTRANSFERASE,ALT 27 U/L (16-63); ASPARTATE AMNIOTRANSFERASE,AST 24 U/L (15-37); BILIRUBIN TOTAL 0.2 mg/dL (0.2-1.0); BLOOD UREA NITROGEN,BUN 39 mg/dL (7-18); CARBON DIOXIDE,CO2 26 mEq/L (21-32); CHLORIDE,CL 107 mEq/L (98-107); CREATININE 1.1 mg/dL (0.7-1.3); EST CRCL DRUG DOSING (CG) 73.74 mL/min; ESTIMATED GFR 77 mL/min (>60); GLUCOSE RANDOM 174 mg/dL (70-99); POTASSIUM,K 4.1 mEq/L (3.5-5.1); PROTEIN TOTAL,TP 6.3 g/dl (6.4-8.2); SODIUM,NA 141 mEq/L (136-145)
[2025-09-11] MEDS: VANCOmycin 1.75 GM/350 ML 1.75 GM in Premix Bag 1 BAG IV SCH (09:23)
[2025-09-13 06:48] VITALS: BP 127/97; PULSE 92
== END 2025-09-13 07:24 | disposition other institution (70) | DRG 540 ==
LOC: JD.ED 15:04 → JD.MS 19:01
PROVIDERS: ADMIT Family Medicine; ATTEND Family Medicine
PROC: B548ZZA Ultrasonography of Superior Vena Cava, Guidance (ICD-10-PCS; principal; 2025-08-17)
PROC: 02HV33Z Insertion of Infusion Device into Superior Vena Cava, Percutaneous Approach (ICD-10-PCS; principal; 2025-08-17)
DX: M86.171 Other acute osteomyelitis, right ankle and foot (principal); L03.115 Cellulitis of right lower limb; N17.9 Acute kidney failure, unspecified; E11.9 Type 2 diabetes mellitus without complications; S91.331A Puncture wound without foreign body, right foot, initial encounter; E11.65 Type 2 diabetes mellitus with hyperglycemia; H54.7 Unspecified visual loss; L03.031 Cellulitis of right toe; Z91.040 Latex allergy status; Z88.6 Allergy status to analgesic agent; Z91.0120 Allergy to eggs, unspecified; E78.00 Pure hypercholesterolemia, unspecified; I10 Essential (primary) hypertension; I25.2 Old myocardial infarction; M19.90 Unspecified osteoarthritis, unspecified site; G47.30 Sleep apnea, unspecified; Z86.73 Personal history of transient ischemic attack (TIA), and cerebral infarction without residual deficits; Z90.49 Acquired absence of other specified parts of digestive tract; Z88.8 Allergy status to other drugs, medicaments and biological substances; Z79.84 Long term (current) use of oral hypoglycemic drugs; Z79.4 Long term (current) use of insulin; Z79.52 Long term (current) use of systemic steroids; Z79.899 Other long term (current) drug therapy
CPT/HCPCS: 36415; 73630; 80053; 83036; 83605; 85007; 85027; 85610; 85652; 86140; 87040 ×2; 96365; 96366; 96375; 99284; J0690; J3375; 36569; 73700-26-RT; 73700-RT; 73718-26-RT; 73718-RT; 80048; 80202; 81001; 82565; 82947; 85025; 97112-GP; 97116-GP; 97162-GP; 97165-GO; 97530-GP; 97535-GO; 97597-GP; 99222; 99231; 99232; 99239; 99285; A4216; A9270-GY; C1751; J0692; J1650; J1815-GY; J1836; J3373; J7030; J7050